=== PATIENT | female | born 1990 | race Two or more races ===

== ENCOUNTER 2024-10-18 17:10 | Emergency (ER) | payer MEDICAID, SELFPAY ==
[2024-10-18 17:10] VITALS: BMI 25.7
[2024-10-18 17:42] VITALS: BP 129/85; PULSE 101; RESP 18; TEMP 37; O2SAT 98; BMI 31.8
--- NOTE | 2024-10-18 18:26 | XR_ITS ---
Examination: OB Transvaginal ultrasound of the pelvis, complete Technique: Transvaginal sonographic images pelvis performed using alexandre scale imaging Exam date and time: October 10, 2024 2030 hrs. Indications: Onset vaginal bleeding today Findings: Uterus 10.6 x 5.4 x 6.1 cm Intrauterine gestational sac 0.9 cm corresponds to 5 weeks 5 day gestational age No pole, no cardiac activity Right ovary 2.6 x 1.7 x 2.1 cm arterial flow Left ovary 2.2 x .8 x 1.8 cm arterial flow. Impression: Empty intrauterine gestational sac corresponding to 5 weeks 5 day gestational age Recommend short-term follow-up transvaginal pelvic sonography to document viability
--- NOTE | 2024-10-18 18:27 | PD.EDRME ---
Rapid Medical Screening Exam [facility] Arrival date/time: 10/18/24 17:10 34F at approximately 6 weeks and with no significant PMH presents to ED with 1 day of vaginal bleeding. Chief Complaint: Urogenital-Female Vital signs: Vital Signs Temperature 98.6 F 10/18/24 17:42 Pulse Rate 101 H 10/18/24 17:42 Respiratory Rate 18 10/18/24 17:42 Blood Pressure 129/85 H 10/18/24 17:42 Pulse Oximetry (%) 98 10/18/24 17:42 Oxygen Delivery Method Room Air 10/18/24 17:42
[2024-10-18 18:51] LABS: Basophils % (Auto) 0 % (0-2.5); Eosinophils # (Auto) 0.1 Thou/mm3 (0.0-0.5); Eosinophils % (Auto) 1 % (0-10); Hematocrit 39.5 % (36.0-46.0); Hemoglobin 13.3 g/dL (12.0-16.0); Immature Granulocytes % (Auto) 0 % (0-0); Immature Granulocytes Auto 0.04 Thou/mm3 (0.00-0.00); Lymphocytes # (Auto) 1.9 Thou/mm3 (1.0-4.8); Lymphocytes % (Auto) 15 % (10-50); Mean Corpuscular HGB Conc 33.7 g/dl (31.0-37.0); Mean Corpuscular Hemoglobin 28.8 pg (25.0-35.0); Mean Corpuscular Volume 86 fL (80-100); Monocytes # (Auto) 1.1 Thou/mm3 (0.0-0.8); Monocytes % (Auto) 8 % (0-12); Neutrophils # (Auto) 9.8 Thou/mm3 (1.8-7.7); Neutrophils % (Auto) 76 % (37-80); Nucleated Red Blood Cell % 0 /100 WBC (0); Platelet Count 287 Thou/mm3 (140-440); RDW Standard Deviation 41.4 fL (36.4-46.3); Red Blood Count 4.62 Miln/mm3 (4.00-5.20); White Blood Count 12.9 Thou/mm3 (3.6-11.0)
[2024-10-18 19:25] LABS: Alanine Aminotransferase 17 U/L (10-49); Albumin, Serum 4.7 gm/dL (3.5-5.0); Albumin/Globulin Ratio 1.5 (1.2-2.2); Alkaline Phosphatase 85 U/L (46-116); Anion Gap 8 (7-16); Aspartate Amino Transferase 17 U/L (0-34); BUN/Creatinine Ratio 22 Ratio (12-20); Bilirubin,Total 0.3 mg/dL (0.3-1.2); Blood Urea Nitrogen 13 mg/dL (9-23); Calcium 9.9 mg/dL (8.3-10.6); Calcium (Corrected) 9.9 mg/dL (8.5-10.1); Carbon Dioxide 26.1 mMol/L (20.0-31.0); Chloride 102 mMol/L (98-107); Creatinine (Component) 0.6 mg/dL (0.6-1.3); Estimated Creatinine Clearance 132.2 mL/min (>60); Globulin 3.1 gm/dL (2.3-3.5); Glucose 103 mg/dL (74-106); Osmolality,Calculated 272 (275-295); Potassium 3.9 mMol/L (3.4-5.1); Sodium 136 mMol/L (136-145); Total Protein 7.8 gm/dL (5.7-8.2); eGFR > 60 See Note
[2024-10-18 19:32] LABS: Collection Type, Urine Clean Catch
[2024-10-18 19:33] LABS: Beta HCG,Quantitative 5729 mIU/mL (<5.0)
[2024-10-18 19:41] LABS: Bilirubin,Urine Negative (Negative); Blood,Urine 2+ (Negative); Clarity,Urine Clear (Clear/Hazy); Color,Urine Lt-Yellow (Lt Yel-Yel); Glucose, Urine Negative (Negative); Ketones,Urine Negative (Negative); Leukocyte Esterase,Urine Negative (Negative); Nitrite,Urine Negative (Negative); Protein,Urine Negative (Neg - Trace); RBC,Urine 1 /hpf (0-3); Specific Gravity,Urine 1.016 (1.001-1.035); Squamous Epithelial Cell,Urine 1 /hpf (0-5); Urobilinogen,Urine Negative mg/dL (0.0-1.0); WBC,Urine < 1 /hpf (0-5)
[2024-10-19 00:06] VITALS: BP 118/77; PULSE 95; RESP 16; TEMP 37; O2SAT 98
--- NOTE | 2024-10-19 00:09 | PD.EDFMALE ---
ED Female Urogenital RME/HPI General Chief complaint: Urogenital-Female Stated complaint: VAGINAL BLEEDING TODAY, + Time Seen by Provider: 10/19/24 00:13 Arrival date/time: 10/18/24 17:10 RME / HPI RME / HPI Narrative: 10/18/24 17:10 34F at approximately 6 weeks and with no significant PMH presents to ED with 1 day of vaginal bleeding. ----- Dr. Escobar?s Main ED Evaluation: 34yo female presents to the ED for a chief complaint of vaginal bleeding x 1 day. Patient states she is ~6 weeks gestation, stating she went to [facility] today, but was unable to get an appointment, so she came in for evaluation. She denies any abdominal cramping or any other associated symptoms. NKA. Related Data Home Medications ?Medication ?Instructions ?Recorded ?Confirmed vit no.95-ferrous PO DAILY 12/13/17 fumarate 28 mg-folic acid 800 mcg tablet () Allergies Allergy/AdvReac Type Severity Reaction Status Date / Time No Known Allergies Allergy Unverified 10/18/24 17:14 Review of Systems Review of Systems Systems Reviewed: All systems reviewed, normal except as documented Past Medical History Past Medical History NEUROLOGIC: Negative Neurological Disorders CARDIAC: Negative Cardiac Disorders GASTROINTESTINAL: Negative Gastrointestinal Disorders, Hepatitis or Colorectal Cancer GENITOURINARY: Negative Genitourinary Disorders or Prostate Cancer REPRODUCTIVE: Negative Breast Cancer, Pelvic Inflammatory Disease or Testicular Cancer MUSCULOSKELETAL: Negative Musculoskeletal Disorders or Bone Cancer ENDOCRINE: Negative Endocrine Disorders HEMATOLOGIC: Negative Blood Disorders OTHER HISTORY: Positive Hospitalization ( x4); Negative Autoimmune Disease, Down Syndrome, Developmental Delay, Shingles, Falls, Blood Transfusions, Blood Transfusion Reaction, Anesthesia Reactions, Organ Transplant, Chemotherapy, Radiation Therapy, Hyperbaric Therapy, MRSA, Vancomycin-Resistant Enterococci, Human Immunodeficiency Virus (HIV), Chicken Pox, Measles, Mumps, Rubella (Welsh Measles), Pertussis, Clostridium Difficile, Breast Cancer, Cervical Cancer, Colorectal Cancer, Lung Cancer, Ovarian Cancer, Prostate Cancer or Testicular Cancer Family History FAMILY HISTORY: Negative Family Psychiatric Problems, Family Respiratory Disorders, Family Cardiac Disorders, Family Gastrointestinal Problems, Family Cancer, Family Surgery or Family Anesthesia Reaction Surgical History SURGICAL: Negative Endocrine Surgery, Ear Surgery, Abdominal Surgery, Nephrectomy, Joint Replacement, Neurologic Surgery, Brain Shunt, Mastectomy, Lumpectomy, Hysterectomy, Tubal Ligation, Section or Organ Transplant Social History SMOKING STATUS: Never smoker ED Exam Narrative Physical exam: GENERAL APPEARANCE: alert and oriented x 4, well-developed, well-nourished, no acute distress VITALS: All vitals were reviewed and the pulse ox is 98% on room air, which is normal according to my interpretation. HEENT: Normocephalic, atraumatic; pupils equal, round, reactive to light; EOMI; mucous membranes pink, moist; oropharynx clear NECK: Supple LUNGS: CTABL; no wheezes, no rales, no rhonchi HEART: Regular rate, regular rhythm; normal S1, S2; no murmurs ABDOMEN: non distended; normal BS; soft, no tenderness, no guarding, no rebound; no masses, no organomegaly, no hernia BACK: no CVA tenderness EXTREMITIES: atraumatic; no edema NEUROLOGIC: awake; alert and oriented x4; cranial nerves II-XII grossly intact; no focal sensory or motor deficits PSYCHIATRIC: appropriate mood and affect SKIN: warm, dry, normal color; no rashes Course Quality Measures none Orders Category Date Time Status US OB transvaginal Stat Exams 10/18/24 18:26 Completed ABO/RH Type Stat Lab 10/18/24 18:43 Completed Beta HCG,Quantitative Stat Lab 10/18/24 18:43 Completed CBC Stat Lab 10/18/24 18:43 Completed CMP [Comprehensive Metabolic Panel] Stat Lab 10/18/24 18:43 Completed UA [Urinalysis] Stat Lab 10/18/24 18:45 Completed Urine Culture Stat Lab 10/18/24 18:45 Completed Vital Signs Vital signs: Vital Signs Temperature 98.6 F 10/18/24 17:42 Pulse Rate 101 H 10/18/24 17:42 Respiratory Rate 18 10/18/24 17:42 Blood Pressure 129/85 H 10/18/24 17:42 Pulse Oximetry (%) 98 10/18/24 17:42 Oxygen Delivery Method Room Air 10/18/24 17:42 Urogenital - Female MDM Narrative MDM Narrative:: Scribe Attestation: 10/19/24 - Nela Jackson am scribing for and in the presence of Dr. Escobar. Patient data External records reviewed:: [facility] previous records (Per chart review, patient has no relevant previous ED visits.) Clinical information provided by:: patient Social determinants that could affect healthcare access:: none Patient has the following chronic illnesses:: none How is presenting disease/condition affected by chronic disease/condition?: no chronic disease Evaluation data The following diagnostics were reviewed and interpreted by me:: lab results and radiology exam(s) Lab and/or radiology exams considered but not ordered:: none Interpretation Summary: WBC count is elevated at 12.9, CMP is normal, Beta HCG is 5729, UA is unremarkable, according to my interpretation. ----- [facility] Report Signed Patient: YING MARTELL. Record#: [id number] Birthdate: 1990 Age/Sex: 34 / F Location: [facility] ([place] Attending Dr: Ordering Physician: Donaldo Davila PA-C Date of Service: 10/18/24 Procedure(s): US OB transvaginal Accession Number(s): [id number] cc: Luis Ruvalcaba MD; Rolando Healy MD; Donaldo Davila PA-C~ Examination: OB Transvaginal ultrasound of the pelvis, complete Technique: Transvaginal sonographic images pelvis performed using alexandre scale imaging Exam date and time: October 10, 2024 2030 hrs. Indications: Onset vaginal bleeding today Findings: Uterus 10.6 x 5.4 x 6.1 cm Intrauterine gestational sac 0.9 cm corresponds to 5 weeks 5 day gestational age No pole, no cardiac activity Right ovary 2.6 x 1.7 x 2.1 cm arterial flow Left ovary 2.2 x .8 x 1.8 cm arterial flow. Impression: Empty intrauterine gestational sac corresponding to 5 weeks 5 day gestational age Recommend short-term follow-up transvaginal pelvic sonography to document viability Dictated By: Rolando Healy MD Signed By: <Electronically signed by Rolando Healy MD in OV> 10/18/242100 Medications / Prescriptions Medications or Prescriptions considered but not ordered:: none Medication administrations:: none Consultations Consultation(s) initiated? (list below): No Diagnosis Urogenital Female Differential Diagnosis: other (threatened miscarriage, vaginal bleeding in , inevitable AB) Most likely diagnosis given after review of the tests above:: see below Admission Indicated Admission indicated?: not indicated Admission Request Was there a request for admission?: No Disposition Plan Disposition Plan: Discharge Discharge Attestation Discharge Attestation: The patient and all family members were given an opportunity to ask questions and understood the discharge instructions. Discharge instructions specifically effects, indications for sooner follow up or return to the emergency department, and the expected course of current diagnosis. Patient condition: Stable Discharge Plan Plan Patient Disposition: HOME (Self Care) Disposition Comment: Stable for discharge Patient condition on transfer: Stable Prescriptions/Referrals Prescriptions/Med Rec: No Action PNV cmb#95-ferrous fumarate-FA [] 28 mg iron- 800 mcg Tablet PO DAILY Referrals: Luis Ruvalcaba MD [Primary Care Provider] - In 1 week Problem List Clinical Impression: Threatened Patient/Caregiver Discharge Instructions Discharge Activity: activity as tolerated Education Materials: Understanding Miscarriage ..., ED Possible Miscarriage ... Additional Instructions: Please return to the emergency department for any worsening or any further medical problems Otherwise you should follow-up with your primary care doctor within the next several days. You will need a repeat ultrasound in several days. Print Language: Chinese Stand Alone Forms: Mi Award Info., Patient Portal Info Letter
== END 2024-10-19 00:29 | disposition home or self-care (01) ==
PROVIDERS: Physician Assistant; Emergency Provider Emergency Medicine; PCP Family Medicine
DX: O20.0 Threatened abortion (principal); Z3A.01 Less than 8 weeks gestation of pregnancy
CPT/HCPCS: 36415; 76817; 80053; 81001; 84702; 85025; 86900; 86901; 87086; 99284

== ENCOUNTER 2024-10-23 23:49 | Emergency (ER) | payer MEDICAID, SELFPAY ==
[2024-10-23 23:50] VITALS: BMI 27.4
[2024-10-24 00:07] VITALS: BP 122/81; PULSE 91; RESP 16; TEMP 37.1; O2SAT 97
--- NOTE | 2024-10-24 00:14 | PD.EDRME ---
Rapid Medical Screening Exam RME Arrival date/time: 10/23/24 23:49 34 year old female present to ED for c/o of vag bleeding 8 week I have greeted and performed a focused initial assessment of this patient. A comprehensive ED assessment and evaluation of the patient, analysis of all test results, and completion of the medical decision making process will be conducted by additional ED providers. Chief Complaint: Vaginal Bleeding Time Seen by Provider: 10/23/24 23:57 Vital signs: Vital Signs Temperature 98.8 F 10/24/24 00:07 Pulse Rate 91 10/24/24 00:07 Respiratory Rate 16 10/24/24 00:07 Blood Pressure 122/81 10/24/24 00:07 Pulse Oximetry (%) 97 10/24/24 00:07 Oxygen Delivery Method Room Air 10/24/24 00:07
[2024-10-24 01:15] LABS: Collection Type, Urine Voided
[2024-10-24 01:24] LABS: Basophils % (Auto) 0 % (0-2.5); Eosinophils # (Auto) 0.1 Thou/mm3 (0.0-0.5); Eosinophils % (Auto) 1 % (0-10); Hematocrit 37.2 % (36.0-46.0); Hemoglobin 12.6 g/dL (12.0-16.0); Immature Granulocytes % (Auto) 0 % (0-0); Immature Granulocytes Auto 0.04 Thou/mm3 (0.00-0.00); Lymphocytes # (Auto) 2.3 Thou/mm3 (1.0-4.8); Lymphocytes % (Auto) 19 % (10-50); Mean Corpuscular HGB Conc 33.9 g/dl (31.0-37.0); Mean Corpuscular Hemoglobin 29.1 pg (25.0-35.0); Mean Corpuscular Volume 86 fL (80-100); Monocytes # (Auto) 0.9 Thou/mm3 (0.0-0.8); Monocytes % (Auto) 8 % (0-12); Neutrophils # (Auto) 8.4 Thou/mm3 (1.8-7.7); Neutrophils % (Auto) 72 % (37-80); Nucleated Red Blood Cell % 0 /100 WBC (0); Platelet Count 256 Thou/mm3 (140-440); RDW Standard Deviation 41.9 fL (36.4-46.3); Red Blood Count 4.33 Miln/mm3 (4.00-5.20); White Blood Count 11.8 Thou/mm3 (3.6-11.0)
[2024-10-24 01:33] LABS: Bacteria,Urine Rare; Bilirubin,Urine Negative (Negative); Blood,Urine 3+ (Negative); Clarity,Urine Clear (Clear/Hazy); Color,Urine Yellow (Lt Yel-Yel); Glucose, Urine Negative (Negative); Ketones,Urine Negative (Negative); Leukocyte Esterase,Urine Negative (Negative); Nitrite,Urine Negative (Negative); PH,Urine 6.5 (5.0-7.0); Protein,Urine Trace (Neg - Trace); RBC,Urine 174 /hpf (0-3); Specific Gravity,Urine 1.023 (1.001-1.035); Squamous Epithelial Cell,Urine 2 /hpf (0-5); WBC,Urine 5 /hpf (0-5)
[2024-10-24 01:49] LABS: Beta HCG,Quantitative 4117 mIU/mL (<5.0)
--- NOTE | 2024-10-24 02:05 | XR_ITS ---
Examination: OB Transvaginal ultrasound of the pelvis, complete Technique: Transvaginal sonographic images pelvis performed using alexandre scale imaging Exam date and time: October 24, 2024 0210 hrs. Indications: Vaginal bleeding beginning October 18, 2024 Findings: Uterus 10.6 x 5.6 x 6.1 cm No intrauterine gestation Endometrial stripe thickened 1.1 cm mildly heterogeneous Right ovary 3.0 x 2.1 x 2.2 cm arterial flow Left ovary 2.4 x 1.0 x 1.8 cm arterial flow Impression: No intrauterine gestation Suspicious for mild retained products of conception Recommend short-term follow-up transvaginal pelvic sonography.
--- NOTE | 2024-10-24 03:56 | PRELIM_ITS ---
Pelvic ultrasound (transvaginal). October 24, 2024 0210 hours Clinical history: Vaginal bleeding No p rior study is available for comparison. Findings:The uterus is anteverted, measuring 10.6 x 5.6 x 6.1 cm. The endometrium is heterogeneous and thickened, measuring 1.1 cm without increased vascularity o n Doppler evaluation. No intrauterine gestational sac is seen at this time. The right ovary measures 3 x 2.1 x 2.2 cm.The left ovary measures 2.4 x 1 x 1.8 cm. Both ovaries demonstrate color flow and sp ectral waveforms on Doppler evaluation. No adnexal mass is demonstrated.There is no free fluid.Impres kashif:No evidence of intrauterine gestation at this time.Heterogeneous and thickened endometrium as de scribed. No intrauterine gestation. Possibility of blood products/retained products of conception to be considered. Recommend serial correlation with Beta hCG and follow up. Report Electronically Kelly d By: Edinson Gill 10/24/2024 3:55:56 AM [EST]
[2024-10-24 05:15] VITALS: BP 119/68; PULSE 78; RESP 18; TEMP 36.9; O2SAT 100
[2024-10-24 08:49] VITALS: BP 127/86; PULSE 88; RESP 18; TEMP 36.7; O2SAT 98
--- NOTE | 2024-10-24 08:51 | EDNOTE_ITS ---
<Statement entered by Rut Ramon MD - 10/31/24 14:48> As co-signing physician, I was present and available for consult prn. I concur with the plan and care as documented by the midlevel provider. ED OB Contraction Preg RMI/HPI General Chief complaint: Vaginal Bleeding Stated complaint: anxiety, vaginal bleeding Time Seen by Provider: 10/23/24 23:57 Source: patient Arrival date/time: 10/23/24 23:49 34-year-old female with no known medical history presents to the emergency room with a chief complaint of vaginal bleeding x 2 days. Patient is currently 8 weeks . Mode of arrival: ambulatory Limitations: no limitations RME / HPI RME / HPI Narrative: 10/23/24 23:49 34 year old female present to ED for c/o of vag bleeding 8 week I have greeted and performed a focused initial assessment of this patient. A comprehensive ED assessment and evaluation of the patient, analysis of all test results, and completion of the medical decision making process will be conducted by additional ED providers. Related Data Home Medications ?Medication ?Instructions ?Recorded ?Confirmed vit no.95-ferrous PO DAILY 12/13/17 fumarate 28 mg-folic acid 800 mcg tablet () Allergies Allergy/AdvReac Type Severity Reaction Status Date / Time No Known Allergies Allergy Unverified 10/18/24 17:14 Review of Systems Review of Systems Systems Reviewed: All systems reviewed, normal except as documented Constitutional Constitutional: Reports system reviewed and no additional complaints, except as documented, Denies fatigue, Denies fever(s), Denies headache(s) and Denies weakness Eyes Eyes: Reports system reviewed and no additional complaints, except as documented, Denies blurry vision and Denies change in vision ENT Ears, Nose, Mouth, and Throat: Reports system reviewed and no additional complaints, except as documented, Denies otalgia, Denies headache(s), Denies nasal congestion, Denies throat swelling and Denies vertigo Cardiovascular Cardiovascular: Reports system reviewed and no additional complaints, except as documented, Denies chest pain, Denies dyspnea and Denies dyspnea on exertion Respiratory Respiratory: Reports system reviewed and no additional complaints, except as documented, Denies chest congestion, Denies cough, Denies dyspnea, Denies dyspnea on exertion and Denies wheezing Gastrointestinal Gastrointestinal: Reports system reviewed and no additional complaints, except as documented, Denies abdominal pain, Denies cramping, Denies nausea and Denies vomiting Genitourinary Genitourinary: Reports system reviewed and no additional complaints, except as documented and Reports abnormal vaginal bleeding Musculoskeletal Musculoskeletal: Reports system reviewed and no additional complaints, except as documented and Denies back pain Integumentary/Breasts Skin/Breast: Reports system reviewed and no additional complaints, except as documented and Denies wounds Neurologic Neurologic: Reports system reviewed and no additional complaints, except as documented, Denies confusion, Denies headache(s), Denies lack of coordination, Denies vertigo and Denies weakness Psychiatric Psychiatric: Reports system reviewed and no additional complaints, except as documented, Denies anxiety, Denies confusion, Denies depression, Denies paranoia, Denies suicidal ideation and Denies tactile hallucinations Endocrine Endocrine: Reports system reviewed and no additional complaints, except as documented and Denies fatigue Hematologic/Lymphatic Hematologic/Lymphatic: Reports system reviewed and no additional complaints, except as documented and Denies lymphadenopathy Allergic/Immunologic Allergic/Immunologic: Reports system reviewed and no additional complaints, except as documented, Denies throat swelling, Denies urticaria and Denies wheezing ED Exam General Limitations: Present no limitations General appearance: Present alert and in no apparent distress Head Head exam: Present atraumatic Eye Eye exam: Present normal appearance, PERRL and EOMI ENT ENT exam: Present normal exam, normal oropharynx and mucous membranes moist Neck Neck exam: Present normal inspection, full ROM and trachea midline Chest Chest inspection: Present normal inspection and symmetric chest wall rise Respiratory Respiratory exam: Present normal lung sounds bilaterally Cardiovascular Cardiovascular exam: Present regular rate, normal rhythm and normal heart sounds Abdominal Exam Abdominal exam: Present soft and normal bowel sounds; Absent distention, tenderness, guarding, rebound or rigidity Extremities Exam Extremities exam: Present normal inspection and full ROM Back Exam Back exam: Present normal inspection and full ROM Neurological Exam Neurological exam: Present alert, oriented X3 and CN II-XII intact Psychiatric Psychiatric exam: Present normal affect and normal mood Skin Skin exam: Present warm, dry, intact and normal color Course Quality Measures none Orders Category Date Time Status US OB transvaginal Stat Exams 10/24/24 02:05 Completed Beta HCG,Quantitative Stat Lab 10/24/24 00:43 Completed CBC Stat Lab 10/24/24 00:43 Completed UA [Urinalysis] Stat Lab 10/24/24 00:47 Completed Vital Signs Vital signs: Vital Signs Temperature 98.8 F 10/24/24 00:07 Pulse Rate 91 10/24/24 00:07 Respiratory Rate 16 10/24/24 00:07 Blood Pressure 122/81 10/24/24 00:07 Pulse Oximetry (%) 97 10/24/24 00:07 Oxygen Delivery Method Room Air 10/24/24 00:07 O2 saturation 97% within normal limits Vaginal Bleeding MDM Narrative MDM Narrative: 34-year-old female with no known medical history presents to the emergency room with a chief complaint of vaginal bleeding x 2 days. Patient is currently 8 weeks . Clinically the patient appears nontoxic and in no apparent distress. Physical examination shows no abdominal tenderness or pain or any pain or tenderness to her groin. The patient is not bleeding heavily. Patient states she is having mild bleeding and is less than a normal period. Hemoglobin levels are within normal limits. hCG levels have decreased from her previous visit and are now down to 4117. an ultrasound was completed and does not show an intrauterine . Patient was educated that she is having a spontaneous miscarriage. Our radiologist recommended a short-term ultrasound follow-up. Patient was educated to follow-up with her [employer] for repeat ultrasound and lab work. Patient was educated that if she is unable to get to her [employer] she can return to the emergency room in the next 3 days for repeat ultrasound and blood work. Patient was educated to follow-up with her [employer] and return to the emergency room for any evidence of worsening signs or symptoms Patient data External records reviewed:: [facility] previous records Clinical information provided by:: patient Social determinants that could affect healthcare access:: none Patient has the following chronic illnesses:: No chronic illness How is presenting disease/condition affected by chronic disease/condition?: no chronic disease Evaluation data The following diagnostics were reviewed and interpreted by me:: lab results and radiology exam(s) Lab and/or radiology exams considered but not ordered:: Labs and radiology exams considered and ordered Interpretation Summary: OB ultrasound-Findings: Uterus 10.6 x 5.6 x 6.1 cm No intrauterine gestation Endometrial stripe thickened 1.1 cm mildly heterogeneous Right ovary 3.0 x 2.1 x 2.2 cm arterial flow Left ovary 2.4 x 1.0 x 1.8 cm arterial flow Impression: No intrauterine gestation Suspicious for mild retained products of conception Recommend short-term follow-up transvaginal pelvic sonography. Medications / Prescriptions Medications or Prescriptions considered but not ordered:: N/A Medication administrations:: N/A Consultations Consultation(s) initiated? (list below): No Diagnosis Vaginal Bleeding Differential Diagnosis: missed , threatened , dysfunctional uterine bleeding, incomplete and ectopic without intrauterine Most likely diagnosis given after review of the tests above:: Incomplete Admission Indicated Admission indicated?: not indicated Admission Request Was there a request for admission?: No Disposition Plan Disposition Plan: Discharge Discharge Attestation Discharge Attestation: The patient and all family members were given an opportunity to ask questions and understood the discharge instructions. Discharge instructions specifically effects, indications for sooner follow up or return to the emergency department, and the expected course of current diagnosis. Patient condition: Stable Discharge Plan Plan Patient Disposition: HOME (Self Care) Disposition Comment: Stable Prescriptions/Referrals Prescriptions/Med Rec: No Action PNV cmb#95-ferrous fumarate-FA [] 28 mg iron- 800 mcg Tablet PO DAILY Referrals: La Duenas CNM [Primary Care Provider] - In 1 week Problem List Clinical Impression: Spontaneous , Vaginal bleeding Patient/Caregiver Discharge Instructions Education Materials: Understanding Miscarriage: Emotions, Understanding Miscarriage: Recovery, Understanding Miscarriage ..., ED MISCARRIAGE Completed Additional Instructions: Carmelo un seguimiento con trent obstetra/ginec?logo en las pr?ximas 24 a 48 horas. La ecograf?a no detect? un embarazo intrauterino. Actualmente est?s sufriendo un aborto espont?michelle. La ecograf?a detect? algunos productos retenidos, ester michelle actualmente est?s abortando, necesitar?s repetir la ecograf?a en las pr?ximas 48 a 76 horas. Si hay evidencia de signos o s?ntomas que empeoran, regrese a la mayuri de emergencias de inmediato. Print Language: Kinyarwanda Stand Alone Forms: Mi Award Info., Patient Portal Info Letter PA/LABOR DELIVERY RN Supervising Physician PA/LABOR DELIVERY RN Supervising Physician: Dr. RAMON
== END 2024-10-24 08:55 | disposition home or self-care (01) ==
PROVIDERS: Physician Assistant; Emergency Provider Emergency Medicine; PCP Advanced Practice Midwife
DX: O03.4 Incomplete spontaneous abortion without complication (principal)
CPT/HCPCS: 36415; 76817; 81001; 84702; 85025; 99284

== ENCOUNTER 2024-10-28 10:13 | Emergency (ER) | payer MEDICAID, SELFPAY ==
--- NOTE | 2024-10-28 10:23 | XR_ITS ---
Examination: OB Transvaginal ultrasound of the pelvis, complete Technique: Transvaginal sonographic images pelvis performed using alexandre scale imaging Exam date and time: October 28, 2024 at 10:49 AM INDICATIONS: Vaginal bleeding beginning October 18, 2024, secondary diagnosis retained products of conception on pelvic sonogram October 24, 2024 FINDINGS: Uterus 10.5 x 5.2 x 7.4 cm No uterine mass or intrauterine gestation No retained products of conception Endometrial stripe 6 mm Right ovary 2.7 x 2.2 cm arterial flow Left ovary obscured by bowel gas IMPRESSION: Negative for retained products of conception.
--- NOTE | 2024-10-28 10:24 | EDNOTE_ITS ---
ED Female Urogenital RME/HPI General Chief complaint: Urogenital-Female Stated complaint: sent by pmd for retained poc, vag. bleeding Time Seen by Provider: 10/28/24 10:24 Source: patient Arrival date/time: 10/28/24 10:13 34-year-old female with no known medical history presents to the emergency room with a chief complaint of vaginal bleeding. Patient was seen here 4 days ago for spontaneous and was told to follow-up with her PCP for repeat ultrasound and blood work. Patient was unable to see her PCP and she is returning to the emergency room for lab work. Patient states she is still having vaginal bleeding. Mode of arrival: ambulatory Limitations: no limitations Related Data Home Medications ?Medication ?Instructions ?Recorded ?Confirmed vit no.95-ferrous PO DAILY 12/13/17 fumarate 28 mg-folic acid 800 mcg tablet () Allergies Allergy/AdvReac Type Severity Reaction Status Date / Time No Known Allergies Allergy Unverified 10/18/24 17:14 ED Exam General Limitations: Present no limitations Course Quality Measures none Orders Category Date Time Status US OB transvaginal Stat Exams 10/28/24 10:23 Completed ABO/RH Type Stat Lab 10/28/24 10:39 Completed Beta HCG,Quantitative Stat Lab 10/28/24 10:39 Completed CBC Stat Lab 10/28/24 10:39 Completed CMP [Comprehensive Metabolic Panel] Stat Lab 10/28/24 10:39 Completed UA [Urinalysis] Stat Lab 10/28/24 10:55 Completed Vital Signs Vital signs: Vital Signs Temperature 98.5 F 10/28/24 10:27 Pulse Rate 85 10/28/24 10:27 Respiratory Rate 16 10/28/24 10:27 Blood Pressure 114/77 10/28/24 10:27 Pulse Oximetry (%) 98 10/28/24 10:27 Oxygen Delivery Method Room Air 10/28/24 10:27 Urogenital - Female MDM Narrative MDM Narrative:: 34-year-old female with no known medical history presents to the emergency room with a chief complaint of vaginal bleeding. Patient was seen here 4 days ago for spontaneous and was told to follow-up with her PCP for repeat ultrasound and blood work. Patient was unable to see her PCP and she is returning to the emergency room for lab work. Patient states she is still having vaginal bleeding. Clinically the patient appears nontoxic and in no apparent distress. Physical examination shows a soft nontender abdomen. Ultrasound was completed and was negative for any retained products of conception. hCG levels were decreased since the last visit. The patient states she changes 3 pads a day and is bleeding less than a period. Patient was discharged and educated to follow-up with her [employer] and return to the emergency room for any evidence of worsening signs or symptoms Patient data External records reviewed:: [facility] previous records Clinical information provided by:: patient Social determinants that could affect healthcare access:: none Patient has the following chronic illnesses:: No chronic illness How is presenting disease/condition affected by chronic disease/condition?: no chronic disease Evaluation data The following diagnostics were reviewed and interpreted by me:: lab results and radiology exam(s) Lab and/or radiology exams considered but not ordered:: Labs and radiology exams considered and ordered Interpretation Summary: Transvaginal ultrasound-FINDINGS: Uterus 10.5 x 5.2 x 7.4 cm No uterine mass or intrauterine gestation No retained products of conception Endometrial stripe 6 mm Right ovary 2.7 x 2.2 cm arterial flow Left ovary obscured by bowel gas IMPRESSION: Negative for retained products of conception. Medications / Prescriptions Medications or Prescriptions considered but not ordered:: No medication given Medication administrations:: No medication given Consultations Consultation(s) initiated? (list below): No Diagnosis Urogenital Female Differential Diagnosis: urinary tract infection and other (Incomplete spontaneous /complete /vaginal bleeding) Most likely diagnosis given after review of the tests above:: Vaginal bleeding Admission Indicated Admission indicated?: not indicated Admission Request Was there a request for admission?: No Disposition Plan Disposition Plan: Discharge Discharge Attestation Discharge Attestation: The patient and all family members were given an opportunity to ask questions and understood the discharge instructions. Discharge instructions specifically effects, indications for sooner follow up or return to the emergency department, and the expected course of current diagnosis. Patient condition: Stable Discharge Plan Plan Patient Disposition: HOME (Self Care) Disposition Comment: Stable Prescriptions/Referrals Prescriptions/Med Rec: No Action PNV cmb#95-ferrous fumarate-FA [] 28 mg iron- 800 mcg Tablet PO DAILY Referrals: La Duenas CNM [Primary Care Provider] - In 1 week Problem List Clinical Impression: Vaginal bleeding Patient/Caregiver Discharge Instructions Education Materials: ED Dysfunctional Uterine Bleeding Additional Instructions: Carmelo un seguimiento con trent obstetra/ginec?logo en las pr?ximas 24 a 48 horas. Se realiz? michelle ecograf?a y no hay productos retenidos en el ?tero. Tus niveles en edy est?n disminuyendo michelle deber?a ser. Carmelo un seguimiento con trent obstetra/ginec?logo y regrese a la mayuri de emergencias si hay evidencia de que los signos o s?ntomas empeoran. Print Language: Nigerian Stand Alone Forms: Mi Award Info., Patient Portal Info Letter PA/BUSINESS CONTROL MANAGER Supervising Physician PA/BUSINESS CONTROL MANAGER Supervising Physician: Dr. Mackenzie
[2024-10-28 10:27] VITALS: BP 114/77; PULSE 85; RESP 16; TEMP 36.9; O2SAT 98; BMI 31.4
[2024-10-28 10:56] LABS: Basophils % (Auto) 1 % (0-2.5); Eosinophils # (Auto) 0.1 Thou/mm3 (0.0-0.5); Eosinophils % (Auto) 2 % (0-10); Hematocrit 38.3 % (36.0-46.0); Hemoglobin 12.6 g/dL (12.0-16.0); Immature Granulocytes % (Auto) 0 % (0-0); Immature Granulocytes Auto 0.01 Thou/mm3 (0.00-0.00); Lymphocytes % (Auto) 30 % (10-50); Mean Corpuscular HGB Conc 32.9 g/dl (31.0-37.0); Mean Corpuscular Hemoglobin 28.6 pg (25.0-35.0); Mean Corpuscular Volume 87 fL (80-100); Monocytes # (Auto) 0.5 Thou/mm3 (0.0-0.8); Monocytes % (Auto) 7 % (0-12); Neutrophils % (Auto) 60 % (37-80); Nucleated Red Blood Cell % 0 /100 WBC (0); Platelet Count 310 Thou/mm3 (140-440); RDW Standard Deviation 41.5 fL (36.4-46.3); Red Blood Count 4.41 Miln/mm3 (4.00-5.20); White Blood Count 6.6 Thou/mm3 (3.6-11.0)
[2024-10-28 11:06] LABS: Collection Type, Urine Clean Catch
[2024-10-28 11:16] LABS: Bacteria,Urine Rare; Bilirubin,Urine Negative (Negative); Blood,Urine 1+ (Negative); Color,Urine Yellow (Lt Yel-Yel); Glucose, Urine Negative (Negative); Ketones,Urine Negative (Negative); Leukocyte Esterase,Urine Negative (Negative); Nitrite,Urine Negative (Negative); PH,Urine 6.5 (5.0-7.0); Protein,Urine Trace (Neg - Trace); RBC,Urine 4 /hpf (0-3); Specific Gravity,Urine 1.029 (1.001-1.035); Squamous Epithelial Cell,Urine 1 /hpf (0-5); Urobilinogen,Urine Negative mg/dL (0.0-1.0); WBC,Urine 1 /hpf (0-5)
[2024-10-28 11:21] LABS: Clarity,Urine Hazy (Clear/Hazy)
[2024-10-28 11:23] LABS: Alanine Aminotransferase 9 U/L (10-49); Albumin, Serum 4.3 gm/dL (3.5-5.0); Albumin/Globulin Ratio 1.3 (1.2-2.2); Alkaline Phosphatase 86 U/L (46-116); Anion Gap 5 (7-16); Aspartate Amino Transferase 17 U/L (0-34); BUN/Creatinine Ratio 25 Ratio (12-20); Beta HCG,Quantitative 259 mIU/mL (<5.0); Bilirubin,Total 0.3 mg/dL (0.3-1.2); Blood Urea Nitrogen 15 mg/dL (9-23); Calcium 9.4 mg/dL (8.3-10.6); Calcium (Corrected) 9.4 mg/dL (8.5-10.1); Carbon Dioxide 28.8 mMol/L (20.0-31.0); Chloride 105 mMol/L (98-107); Creatinine (Component) 0.6 mg/dL (0.6-1.3); Estimated Creatinine Clearance 131.4 mL/min (>60); Globulin 3.2 gm/dL (2.3-3.5); Glucose 82 mg/dL (74-106); Osmolality,Calculated 277 (275-295); Potassium 3.9 mMol/L (3.4-5.1); Sodium 139 mMol/L (136-145); Total Protein 7.5 gm/dL (5.7-8.2); eGFR > 60 See Note
== END 2024-10-28 12:21 | disposition home or self-care (01) ==
PROVIDERS: Nurse Practitioner Family; Emergency Provider Emergency Medicine; PCP Advanced Practice Midwife
DX: N93.8 Other specified abnormal uterine and vaginal bleeding (principal)
CPT/HCPCS: 36415; 76817; 80053; 81001; 84702; 85025; 86900; 86901; 99284

== ENCOUNTER 2025-02-02 12:57 | Outpatient (AMB) | payer MEDICAID, SELFPAY ==
--- NOTE | 2025-02-02 13:13 | OBCLNT_ITS ---
Vital Signs 02/02/25 13:34 Height 1.7 m Height Method Stated Weight 84.085 kg Weight Measurement Method Standing Scale BMI 29.0 BP 113/79 Blood Pressure Source Automatic Cuff Blood Pressure Location Left Upper Arm Position Sitting Respiration 16 Pulse 98 Pulse Source Monitor Temp 97.7 F Temp Source Oral Pulse Oximetry (%) 98 Oxygen Delivery Method Room Air Allergies/Home Meds Allergies & Medications Allergies No Known Allergies Allergy (Verified 02/02/25 13:35) Medication Reconciliation vit no.95-ferrous fumarate 28 mg-folic acid 800 mcg tablet () 1 tab PO DAILY 90 days #90 tabs 02/02/25 [Rx] Intake Visit Data Collection New Patient or Established: Established Patient (seen at [facility] within 3 years) Reason for Visit:: INITIAL CARE Seen by Clinical Staff ONLY (RN/MA): No Director Audience Marketing Required: No Do You Feel Safe at Home: Yes Authorities Contacted: N/A PCP or OBGYN visit in last 3 months: No Hx Now: Yes Are you currently on any form of Control: No Last menstrual period: 01/04/25 Pain Present Currently: No Pain Scale Used: Almendarez-Tenorio/Numerical Pain scale:: 0 Smoking Status Smoking Status: Never smoker Questionnaires Covid-19 Vaccine Questionnaire Has patient been vacinated for Covid-19 Have you been vacinated for Covid-19: Yes PHQ-9 PHQ-2 Over the last 2 weeks, how often have you been bothered by any of the following problems? 1. Little interest or pleasure in doing things: not at all 2. Feeling down, depressed, or hopeless: not at all Total score: 0 PHQ-9 3. Trouble falling or staying asleep, or sleeping too much: Not at all 4. Feeling tired or having little energy: Not at all 5. Poor appetite or overeating: Not at all 6. Feeling bad about yourself - or that you are a failure or have let yourself or your family down: Not at all 7. Trouble concentrating on things, such as reading the newspaper or watching television: Not at all 8. Moving or speaking so slowly that other people could have noticed? - Or the opposite - being so fidgety or restless that you have been moving around a lot more than usual: not at all 9. Thoughts that you would be better off or of hurting yourself in some way: Not at all Total score: 0 Source: Developed by Drs. Ridge Feng, Misti Stephen, Celestino Zapata and colleagues, with an educational jorge from [employer]. Depression screen completed yes Social History Living Situation History Marital Status: Single Lives With: Family Housing: House Tobacco History Smoking Status: Never smoker Second Hand Smoke Exposure: No Alcohol History Alcohol Intake: Never Domestic Abuse History Do You Feel Safe at Home: Yes Past Medical History Past Medical History Have you ever been diagnosed with any of the following: Neurological Problems Cerebrovascular Accident (CVA): No Transient Ischemic Attacks (TIA): No Dementia: No Alzheimer's Disease: No Parkinson's Disease: No Meningitis: No Seizures: No Multiple Sclerosis: No Guillain-[place] Syndrome: No Spina Bifida: No Hayes's Palsy: No Cardiology Problems Myocardial Infarction: No Cardiac Arrhythmia: No Atrial Fibrillation: No Angina: No Atherosclerotic Heart Disease: No Peripheral Vascular Disease: No Hypercholesterolemia: No Congestive Heart Failure: No Respiratory Problems Chronic Obstructive Pulmonary Disease (COPD): No Asthma: No Bronchitis: No Emphysema: No Hx Cough: No Cough: No Wheezing: No Chest Deformities: No Smoking: No Smoking Cessation Counseling: No Smoking Exposure: No Tobacco Use: No Stomache/Intestinal Problems Liver Cancer: No Hepatitis: No Cirrhosis: No Pancreatic Cancer: No Pancreatitis: No Celiac Disease: No Colorectal Cancer: No Genital/Urinary Problems Chronic Kidney Disease: No Renal Disease: No Reproductive Problems Breast Cancer: No Pelvic Inflammatory Disease: No Previous Pregnancies: Yes Musculoskeletal Problems Muscular Dystrophy: No Myasthenia Gravis: No Marfan's Syndrome: No Bone Cancer: No Fractures: No Degenerative Joint Disease: No Osteomyelitis: No Poliovirus: No Head,Eye,Nose,Throat Problems Cataracts: No Glaucoma: No Blind: No Retinal Detachment: No Macular Degeneration: No Chronic Ear Infections: No Endocrine Problems Diabetes Mellitus Type 1: No Diabetes Mellitus Type 2: No Hypothyroidism: No Thyroid Cancer: No Parathyroid Disease: No Pituitary Disease: No Blood Problems Anemia: No Leukemia: No Hemophilia: No Thalassemia: No Sickle Cell Disease: No Clotting Problems: No Psychologic Problems Schizophrenia: No Recreational Drug Use: No Bipolar Disorder: No Other Problems Hospitalization: Yes Down Syndrome: No Developmental Delay: No Shingles: No Falls: No Blood Transfusions: No Blood Transfusion Reaction: No Anesthesia Reactions: No Organ Transplant: No Chemotherapy: No Radiation Therapy: No Hyperbaric Therapy: No MRSA: No Vancomycin-Resistant Enterococci: No Human Immunodeficiency Virus (HIV): No Chicken Pox: No Measles: No Mumps: No Rubella (Mozambican Measles): No Pertussis: No Clostridium Difficile: No Cervical Cancer: No Lung Cancer: No Ovarian Cancer: No Surgical History Hysterectomy: No History of Present Illness HPI Narrative 35-year-old 7 para 5 SAB 1 for OBI. Last. Was January 04, 2025. Menses are monthly. Reports sure dates. EDC based on LMP October 12. So patient is 4 weeks and a day to day. Denies any SAB complaints. She denies any first trimester discomforts. Her and are happy about the . She had a positive home test her 5 pregnancies were uneventful. Denies social habits. Denies surgery. Denies chronic illness. OB Initial Visit OB Flowsheet OB Flowsheet Initial Weight: Not Recorded Date -?-?-?-?-?-?-?-?-?-?-?-?- EGA Weight Edema CTX Effacement BP Fundal ht Pres Dilation Effacement Station Visit Note Alb Glu FHR Mov 02/02/25 -?-?-?-?-?-?-?-?-?-?-?-?- 4w 1d 84.085 kg absent absent 113/79 35-year-old 7 para 5 SAB 1 for initial OB appointment. Patient's last. January 04, 2025. This makes her due date October 12, 2025. Denies SAB complaints at this time. No complaints of first trimester discomforts. Her and her are happy about the . She reports that her periods are every month. Denies social habits. Denies surgery. Denies chronic illness. Patient denies social habits. Patient reports that all her pregnancies were normal and the biggest baby weighed 7-1/2 pounds. Today I ordered OB panel. vitamins vitamin D and calcium will be ordered. Urine dip was negative pH was 7.0 and urowas 1.0. And test today was positive. Schedule ultrasound for viability. Menstrual History Menstrual reliability: definite Flow: normal Menstrual regularity: regular Monthly: Yes Age at menarche: 14 On control pills at conception: No Date of positive home test: 12/28/24 Associated symptoms (LMP): Reports fatigue OB History : 7 Para: 5 Hx Total # of Abortions (Spontaneous & Elective): 1 # of Living Children: 5 Delivery History 1st : Child's name: KYLIE date: 08/09/05 sex: male Gestational age at delivery (weeks): 40 Delivery type: vaginal Delivery complications: NONE History of depression before or after : No 2nd : Child's name: TANESHA date: 02/14/07 sex: female Gestational age at delivery (weeks): 40 Delivery type: vaginal Delivery complications: NONE History of depression before or after : No 3rd : Child's name: LIZ date: 08/18/09 sex: male Gestational age at delivery (weeks): 39 Delivery type: vaginal Delivery complications: NONE History of depression before or after : No 4th : Child's name: ALMA date: 03/27/12 sex: female Gestational age at delivery (weeks): 38 Delivery type: vaginal Delivery complications: NONE History of depression before or after : No 5th : Child's name: STACEY date: 12/14/17 sex: male Gestational age at delivery (weeks): 39 Delivery type: vaginal Delivery complications: NONE History of depression before or after : No Infection History & Risk Evaluation History of STDs: none Genetic Screening & History Genetic Screening/Teratology Counseling - Includes patient, baby's father, or anyone in either family with: 1. Patient's age 35 years or older as of estimated date of delivery: Yes 2. Thalassemia (Arabic, Citizen Of [place], Mediterranean, or Background); MCV less than 80: No 3. Neural Tube Defect (Meningomyelocele, Spina Bifida, or Anencephaly): No 4. Congenital Heart Defect: No 5. Down Syndrome: No 6. Osorio-Sachs (Ashkenazi Temple, Cajun, Spanish [place]): No 7. Silvano Disease (Ashkenazi Temple): No 8. Familial Dysautonomia (Ashkenazi [place]): No 9. Sickle Cell Disease or Trait (): No 10. Hemophilia or other blood disorders: No 11. Muscular Dystrophy: No 12. Cystic Fibrosis: No 13. Linda's Chorea: No 14. Mental Retardation/Autism: No 15. Other inherited genetic or chromosomal disorder: No 16. Maternal Metabolic Disorder (EG,TYPE 1 Diabetes, PKU): No 17. Patient or baby's father had a child with defects not listed above: No 18. Recurrent loss or a stillbirth: No 19. Medications (including supplements, vitamins, herbs or otc drugs)/illicit/recreational drugs/alcohol since last menstrual period: No 20. Any other: No Infection History 1. Live with someone with TB or exposed to TB: No 2. Rash or viral illness since last menstrual period: No 3. Hepatitis B,C: No Other (see comments) Source: [employer] Review of Systems Review of Systems Systems Reviewed: All systems reviewed, normal except as documented Constitutional Constitutional: Reports fatigue Endocrine Endocrine: Reports fatigue Exam General Limitations: no limitations General Appearance: alert, in no apparent distress, comfortable, cooperative, healthy appearing, well developed and well groomed Chest Chest inspection: Present normal inspection and symmetric chest wall rise Resp Respiratory exam: Present normal lung sounds bilaterally Card Cardiovascular exam: Present regular rate, normal rhythm and normal heart sounds Abdominal Abdominal exam: Present soft (gravid) and normal bowel sounds Psych Psychiatric exam: Present normal affect and normal mood Assessment & Plan Diagnosis / Problem List (1) Encounter for supervision of normal in multigravida in first trimester: Status: Acute (2) Uterine size-date discrepancy, unspecified trimester: Status: Acute (3) Advanced maternal age (AMA) in : Status: Acute Plan OB panel, CBC and hCG today. Schedule an ultrasound for viability. Ordered vitamins and patient can start them today. As comfort measures for first trimester discomforts. SAB precautions. Return in 4 weeks OB check Additional Plan Follow Up: 4 Weeks (OBC in 4 week) Office Procedures OB Clinic LOC & Office Proc's Nursing/Assessment Patient Status: Established Patient OB Clinic Nursing Assessment: Medication Reconciliation, Update PMH in EMR and Vital Signs OB Clinic Coordination of Care: AMA, Complex Care and Chronic Disease 1-5, Consent,records obtained, informed consent, Education Simp Pt/Fam, Lab and Imaging orders, Results/Orders obtained and Staff clarify orders Special Needs: Heart tones Miscellaneous Interventions: Blood/Urine Collection Established Patient Charge Established Patient Point Assignment: 185 Established Patient Point Charge: EP Level 5 (160-above) Urine HCG Ambulatory Location Ambulatory Dept Location: OB Clinic (POSITIVE RESULTS) Urine HCG HCG: Yes
[2025-02-02 13:34] VITALS: BP 113/79; PULSE 98; RESP 16; TEMP 36.5; O2SAT 98; BMI 29.0
== END 2025-02-02 14:31 | disposition home or self-care (01) ==
PROVIDERS: PCP Advanced Practice Midwife; Referring Provider Advanced Practice Midwife; Supervising Provider Advanced Practice Midwife; Visit Provider Advanced Practice Midwife
DX: O09.521 Supervision of elderly multigravida, first trimester (principal); Z3A.01 Less than 8 weeks gestation of pregnancy; O26.841 Uterine size-date discrepancy, first trimester
CPT/HCPCS: 99215; G0463

== ENCOUNTER 2025-02-11 10:49 | Outpatient (AMB) | payer MEDICAID, SELFPAY ==
--- NOTE | 2025-02-11 11:09 | OBCLNT_ITS ---
Vital Signs 02/11/25 11:10 Height 1.7 m Height Method Stated Weight 80.853 kg Weight Measurement Method Standing Scale BMI 27.9 BP 120/79 Blood Pressure Source Automatic Cuff Blood Pressure Location Right Upper Arm Position Sitting Respiration 20 Pulse 91 Pulse Source Monitor Temp 97.8 F Temp Source Temporal Artery Scan Pulse Oximetry (%) 98 Oxygen Delivery Method Room Air Allergies/Home Meds Allergies & Medications Allergies No Known Allergies Allergy (Verified 02/11/25 11:10) Medication Reconciliation vit no.95-ferrous fumarate 28 mg-folic acid 800 mcg tablet () 1 tab PO DAILY 90 days #90 tabs 02/02/25 [Rx Confirmed 02/11/25] Intake Visit Data Collection New Patient or Established: Established Patient (seen at [facility] within 3 years) Reason for Visit:: obc Do You Feel Safe at Home: Yes Authorities Contacted: N/A PCP or OBGYN visit in last 3 months: Yes Pain Present Currently: No Smoking Status Smoking Status: Never smoker Questionnaires Covid-19 Vaccine Questionnaire Has patient been vacinated for Covid-19 Have you been vacinated for Covid-19: Yes PHQ-9 PHQ-2 Over the last 2 weeks, how often have you been bothered by any of the following problems? 1. Little interest or pleasure in doing things: not at all 2. Feeling down, depressed, or hopeless: not at all Total score: 0 PHQ-9 8. Moving or speaking so slowly that other people could have noticed? - Or the opposite - being so fidgety or restless that you have been moving around a lot more than usual: not at all Source: Developed by Drs. Ridge Feng, Misti Stephen, Celestino Zapata and colleagues, with an educational jorge from [employer]. Depression screen completed yes Social History Living Situation History Lives With: Family Housing: House Tobacco History Smoking Status: Never smoker Second Hand Smoke Exposure: No Alcohol History Alcohol Intake: Never Domestic Abuse History Do You Feel Safe at Home: Yes Past Medical History Past Medical History Have you ever been diagnosed with any of the following: Neurological Problems Cerebrovascular Accident (CVA): No Transient Ischemic Attacks (TIA): No Dementia: No Alzheimer's Disease: No Parkinson's Disease: No Meningitis: No Seizures: No Multiple Sclerosis: No Guillain-[place] Syndrome: No Spina Bifida: No Hayes's Palsy: No Cardiology Problems Myocardial Infarction: No Cardiac Arrhythmia: No Atrial Fibrillation: No Angina: No Atherosclerotic Heart Disease: No Peripheral Vascular Disease: No Hypercholesterolemia: No Congestive Heart Failure: No Respiratory Problems Chronic Obstructive Pulmonary Disease (COPD): No Asthma: No Bronchitis: No Emphysema: No Hx Cough: No Cough: No Wheezing: No Chest Deformities: No Smoking: No Smoking Cessation Counseling: No Smoking Exposure: No Tobacco Use: No Stomache/Intestinal Problems Liver Cancer: No Hepatitis: No Cirrhosis: No Pancreatic Cancer: No Pancreatitis: No Celiac Disease: No Colorectal Cancer: No Genital/Urinary Problems Renal Disease: No Reproductive Problems Breast Cancer: No Pelvic Inflammatory Disease: No Previous Pregnancies: Yes Musculoskeletal Problems Muscular Dystrophy: No Myasthenia Gravis: No Marfan's Syndrome: No Bone Cancer: No Fractures: No Degenerative Joint Disease: No Osteomyelitis: No Poliovirus: No Head,Eye,Nose,Throat Problems Cataracts: No Glaucoma: No Blind: No Retinal Detachment: No Macular Degeneration: No Chronic Ear Infections: No Endocrine Problems Diabetes Mellitus Type 1: No Diabetes Mellitus Type 2: No Hypothyroidism: No Thyroid Cancer: No Parathyroid Disease: No Pituitary Disease: No Blood Problems Anemia: No Leukemia: No Hemophilia: No Thalassemia: No Sickle Cell Disease: No Clotting Problems: No Psychologic Problems Schizophrenia: No Recreational Drug Use: No Bipolar Disorder: No Other Problems Hospitalization: Yes Down Syndrome: No Developmental Delay: No Shingles: No Falls: No Blood Transfusions: No Blood Transfusion Reaction: No Anesthesia Reactions: No Organ Transplant: No Chemotherapy: No Radiation Therapy: No Hyperbaric Therapy: No MRSA: No Vancomycin-Resistant Enterococci: No Human Immunodeficiency Virus (HIV): No Chicken Pox: No Measles: No Mumps: No Rubella (Maori Measles): No Pertussis: No Clostridium Difficile: No Cervical Cancer: No Lung Cancer: No Ovarian Cancer: No Surgical History Hysterectomy: No Visit OB Visit Log OB Flowsheet Initial Weight: Not Recorded Date -?-?-?-?-?-?-?-?-?-?-?-?- EGA Weight Edema CTX Effacement BP Fundal ht Pres Dilation Effacement Station Visit Note Alb Glu FHR Mov 02/02/25 -?-?-?-?-?-?-?-?-?-?-?-?- 4w 1d 84.085 kg absent absent 113/79 35-year-old 7 para 5 SAB 1 for initial OB appointment. Patient's last. January 04, 2025. This makes her due date October 12, 2025. Denies SAB complaints at this time. No complaints of first trimester discomforts. Her and her are happy about the . She reports that her periods are every month. Denies social habits. Denies surgery. Denies chronic illness. Patient denies social habits. Patient reports that all her pregnancies were normal and the biggest baby weighed 7-1/2 pounds. Today I ordered OB panel. vitamins vitamin D and calcium will be ordered. Urine dip was negative pH was 7.0 and urowas 1.0. And test today was positive. Schedule ultrasound for viability. 02/11/25 -?-?-?-?-?-?-?-?-?-?-?-?- 5w 3d 80.853 kg absent absent 120/79 reports bleeding like a period and 02/07, no bleeding since, no N/V. monogamous. discussed HCG of 137 and OB panel results. labs + for RPR, TPA reactive, titer 1:32. discussed + syphilis with patient, discussed treatment for her and partner. handout given. no sex. advised patient to have partner treated at [facility]. No Bicillin 2.4 IM in stock, called and ordered from lab, will get 02/16/25. patient scheduled for Bicillin 2.4 on 02/16, advised weekly treatment x 3 as well as partner. repeat hcg x2. 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 review treatment for patient and partner, advise patient to have partner get tested and treated at PCP. No sex. order Bicillin 2.4mu from pharmacy for treatment. HCG x2. OB sono for r/o sab 02/18, sab precaution reviewed. rtc 02/16 for initiation of treatment Additional Plan Follow Up: 5 Days (bicillin 2.4 mu IM 4/28) Instructions: Syphilis Office Procedures OB Clinic LOC & Office Proc's Nursing/Assessment Patient Status: Established Patient OB Clinic Nursing Assessment: Medication Reconciliation, Update PMH in EMR and Vital Signs OB Clinic Coordination of Care: Complex Care and Chronic Disease 1-5, Education Complex Pt/Fam and Staff clarify orders Special Needs: Language special needs Established Patient Charge Established Patient Point Assignment: 85 Established Patient Point Charge: EP Level 3 (80-115)
[2025-02-11 11:10] VITALS: BP 120/79; PULSE 91; RESP 20; TEMP 36.6; O2SAT 98; BMI 27.9
== END 2025-02-11 11:58 | disposition home or self-care (01) ==
PROVIDERS: PCP Advanced Practice Midwife; Referring Provider Advanced Practice Midwife; Supervising Provider Advanced Practice Midwife; Visit Provider Advanced Practice Midwife
DX: O20.0 Threatened abortion (principal); Z3A.01 Less than 8 weeks gestation of pregnancy; O98.111 Syphilis complicating pregnancy, first trimester
CPT/HCPCS: 99213; G0463

== ENCOUNTER 2025-02-16 09:49 | Outpatient (AMB) | payer MEDICAID, SELFPAY ==
--- NOTE | 2025-02-16 10:04 | AMB.GYNCLNOT ---
Vital Signs 02/16/25 10:09 Height 1.7 m Height Method Stated Weight 83.121 kg Weight Measurement Method Standing Scale BMI 28.8 BP 113/79 Blood Pressure Source Automatic Cuff Blood Pressure Location Left Upper Arm Position Sitting Respiration 18 Pulse 90 Pulse Source Monitor Temp 97.8 F Temp Source Oral Pulse Oximetry (%) 97 Oxygen Delivery Method Room Air Allergies/Home Meds Allergies & Medications Allergies No Known Allergies Allergy (Verified 02/16/25 10:14) Medication Reconciliation vit no.95-ferrous fumarate 28 mg-folic acid 800 mcg tablet () 1 tab PO DAILY 90 days #90 tabs 02/02/25 [Rx Confirmed 02/16/25] Intake Visit Data Collection New Patient or Established: Established Patient (seen at [facility] within 3 years) Seen by Clinical Staff ONLY (RN/MA): No Sales Associate Fishing Required: No Do You Feel Safe at Home: Yes Authorities Contacted: N/A PCP or OBGYN visit in last 3 months: Yes Hx Now: No Are you currently on any form of Control: No Pain Present Currently: No Pain Scale Used: Almendarez-Tenorio/Numerical Pain scale:: 0 Smoking Status Smoking Status: Never smoker 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 1. Little interest or pleasure in doing things: not at all 2. Feeling down, depressed, or hopeless: not at all Total score: 0 PHQ-9 3. Trouble falling or staying asleep, or sleeping too much: Not at all 4. Feeling tired or having little energy: Not at all 5. Poor appetite or overeating: Not at all 6. Feeling bad about yourself - or that you are a failure or have let yourself or your family down: Not at all 7. Trouble concentrating on things, such as reading the newspaper or watching television: Not at all 8. Moving or speaking so slowly that other people could have noticed? - Or the opposite - being so fidgety or restless that you have been moving around a lot more than usual: not at all 9. Thoughts that you would be better off or of hurting yourself in some way: Not at all Total score: 0 Source: Developed by Drs. Ridge Feng, Misti Stephen, Celestino Zapata and colleagues, with an educational jorge from [employer]. Depression screen completed yes Social History Living Situation History Lives With: Family Housing: House Tobacco History Smoking Status: Never smoker Second Hand Smoke Exposure: No Alcohol History Alcohol Intake: Never Domestic Abuse History Do You Feel Safe at Home: Yes Past Medical History Past Medical History Have you ever been diagnosed with any of the following: Neurological Problems Cerebrovascular Accident (CVA): No Transient Ischemic Attacks (TIA): No Dementia: No Alzheimer's Disease: No Parkinson's Disease: No Meningitis: No Seizures: No Multiple Sclerosis: No Guillain-[place] Syndrome: No Spina Bifida: No Hayes's Palsy: No Cardiology Problems Myocardial Infarction: No Cardiac Arrhythmia: No Atrial Fibrillation: No Angina: No Atherosclerotic Heart Disease: No Peripheral Vascular Disease: No Hypercholesterolemia: No Congestive Heart Failure: No Respiratory Problems Chronic Obstructive Pulmonary Disease (COPD): No Asthma: No Bronchitis: No Emphysema: No Hx Cough: No Cough: No Wheezing: No Chest Deformities: No Smoking: No Smoking Cessation Counseling: No Smoking Exposure: No Tobacco Use: No Stomache/Intestinal Problems Liver Cancer: No Hepatitis: No Cirrhosis: No Pancreatic Cancer: No Pancreatitis: No Celiac Disease: No Colorectal Cancer: No Genital/Urinary Problems Renal Disease: No Reproductive Problems Breast Cancer: No Pelvic Inflammatory Disease: No Previous Pregnancies: Yes Musculoskeletal Problems Muscular Dystrophy: No Myasthenia Gravis: No Marfan's Syndrome: No Bone Cancer: No Fractures: No Degenerative Joint Disease: No Osteomyelitis: No Poliovirus: No Head,Eye,Nose,Throat Problems Cataracts: No Glaucoma: No Blind: No Retinal Detachment: No Macular Degeneration: No Chronic Ear Infections: No Endocrine Problems Diabetes Mellitus Type 1: No Diabetes Mellitus Type 2: No Hypothyroidism: No Thyroid Cancer: No Parathyroid Disease: No Pituitary Disease: No Blood Problems Anemia: No Leukemia: No Hemophilia: No Thalassemia: No Sickle Cell Disease: No Clotting Problems: No Psychologic Problems Schizophrenia: No Recreational Drug Use: No Bipolar Disorder: No Other Problems Hospitalization: Yes Down Syndrome: No Developmental Delay: No Shingles: No Falls: No Blood Transfusions: No Blood Transfusion Reaction: No Anesthesia Reactions: No Organ Transplant: No Chemotherapy: No Radiation Therapy: No Hyperbaric Therapy: No MRSA: No Vancomycin-Resistant Enterococci: No Human Immunodeficiency Virus (HIV): No Chicken Pox: No Measles: No Mumps: No Rubella (Italian Measles): No Pertussis: No Clostridium Difficile: No Cervical Cancer: No Lung Cancer: No Ovarian Cancer: No Surgical History Hysterectomy: No Assessment & Plan Diagnosis / Problem List (1) Syphilis, unspecified: Status: Acute Office Meds penicillin G benzathine 2,400,000 unit/4 mL intramuscular syringe Performing Provider: La Duenas CNM Performing Location: [facility] TRANSMISSION SYSTEMS OPERATOR Clinic Administered by: Lor Bailon MA on 02/16/25 10:17 Dose Route Admin Location Dispensed Lot Number Expiration Date [facility] News Gathering Technician 2.4 mmu IM LEFT GLUTE 4 mL [id number] 06/10/27 14765-738-95 [employer] [facility]
[2025-02-16 10:09] VITALS: BP 113/79; PULSE 90; RESP 18; TEMP 36.6; O2SAT 97; BMI 28.8
--- NOTE | 2025-02-16 10:32 | AMB.GYNCLNOT ---
Vital Signs 02/16/25 10:09 02/16/25 10:34 Height 1.7 m Height Method Stated Weight 83.121 kg Weight Measurement Method Standing Scale BMI 28.8 BP 113/79 113/79 Blood Pressure Source Automatic Cuff Blood Pressure Location Left Upper Arm Position Sitting Respiration 18 18 Pulse 90 90 Pulse Source Monitor Temp 97.8 F 97.8 F Temp Source Oral Pulse Oximetry (%) 97 97 Oxygen Delivery Method Room Air Allergies/Home Meds Allergies & Medications Allergies No Known Allergies Allergy (Verified 02/23/25 16:46) Medication Reconciliation vit no.95-ferrous fumarate 28 mg-folic acid 800 mcg tablet () 1 tab PO DAILY 90 days #90 tabs 02/02/25 [Rx Confirmed 02/16/25] Intake Visit Data Collection New Patient or Established: Established Patient (seen at [facility] within 3 years) Reason for Visit:: STI treatment Do You Feel Safe at Home: Yes Authorities Contacted: N/A PCP or OBGYN visit in last 3 months: Yes Smoking Status Smoking Status: Never smoker 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 1. Little interest or pleasure in doing things: not at all PHQ-9 3. Trouble falling or staying asleep, or sleeping too much: Not at all 4. Feeling tired or having little energy: Not at all 5. Poor appetite or overeating: Not at all 6. Feeling bad about yourself - or that you are a failure or have let yourself or your family down: Not at all 7. Trouble concentrating on things, such as reading the newspaper or watching television: Not at all 8. Moving or speaking so slowly that other people could have noticed? - Or the opposite - being so fidgety or restless that you have been moving around a lot more than usual: not at all Source: Developed by Drs. Ridge Feng, Misti Stephen, Celestino Zapata and colleagues, with an educational jorge from [employer]. Social History Living Situation History Lives With: Family Housing: House Tobacco History Smoking Status: Never smoker Second Hand Smoke Exposure: No Alcohol History Alcohol Intake: Never Domestic Abuse History Do You Feel Safe at Home: Yes Past Medical History Past Medical History Have you ever been diagnosed with any of the following: Neurological Problems Cerebrovascular Accident (CVA): No Transient Ischemic Attacks (TIA): No Dementia: No Alzheimer's Disease: No Parkinson's Disease: No Meningitis: No Seizures: No Multiple Sclerosis: No Guillain-[place] Syndrome: No Spina Bifida: No Hayes's Palsy: No Cardiology Problems Myocardial Infarction: No Cardiac Arrhythmia: No Atrial Fibrillation: No Angina: No Atherosclerotic Heart Disease: No Peripheral Vascular Disease: No Hypercholesterolemia: No Congestive Heart Failure: No Respiratory Problems Chronic Obstructive Pulmonary Disease (COPD): No Asthma: No Bronchitis: No Emphysema: No Hx Cough: No Cough: No Wheezing: No Chest Deformities: No Smoking: No Smoking Cessation Counseling: No Smoking Exposure: No Tobacco Use: No Stomache/Intestinal Problems Liver Cancer: No Hepatitis: No Cirrhosis: No Pancreatic Cancer: No Pancreatitis: No Celiac Disease: No Colorectal Cancer: No Genital/Urinary Problems Renal Disease: No Reproductive Problems Breast Cancer: No Pelvic Inflammatory Disease: No Previous Pregnancies: Yes Musculoskeletal Problems Muscular Dystrophy: No Myasthenia Gravis: No Marfan's Syndrome: No Bone Cancer: No Fractures: No Degenerative Joint Disease: No Osteomyelitis: No Poliovirus: No Head,Eye,Nose,Throat Problems Cataracts: No Glaucoma: No Blind: No Retinal Detachment: No Macular Degeneration: No Chronic Ear Infections: No Endocrine Problems Diabetes Mellitus Type 1: No Diabetes Mellitus Type 2: No Hypothyroidism: No Thyroid Cancer: No Parathyroid Disease: No Pituitary Disease: No Blood Problems Anemia: No Leukemia: No Hemophilia: No Thalassemia: No Sickle Cell Disease: No Clotting Problems: No Psychologic Problems Schizophrenia: No Recreational Drug Use: No Bipolar Disorder: No Other Problems Hospitalization: Yes Down Syndrome: No Developmental Delay: No Shingles: No Falls: No Blood Transfusions: No Blood Transfusion Reaction: No Anesthesia Reactions: No Organ Transplant: No Chemotherapy: No Radiation Therapy: No Hyperbaric Therapy: No MRSA: No Vancomycin-Resistant Enterococci: No Human Immunodeficiency Virus (HIV): No Chicken Pox: No Measles: No Mumps: No Rubella (Sammarinese Measles): No Pertussis: No Clostridium Difficile: No Cervical Cancer: No Lung Cancer: No Ovarian Cancer: No Surgical History Hysterectomy: No History of Present Illness HPI Narrative 35-year-old 7 para 5 here for treatment of positive RPR. Last. Was January 04, 2025. Patient had a complete SAB. Her hCG February 12 was 2. Pelvic ultrasound results are pending. Patient denies allergies. Denies chronic illness. Denies social habits. Denies surgeries. Patient is not sexually active. She reports that her partner is aware of positive RPR and has an appointment today for labs and treatment. Patient desires to use Depo-Provera for family-planning. Review of Systems Review of Systems Systems Reviewed: All systems reviewed, normal except as documented Results Objective Laboratory: RPR::1:32,TPA+, HC Assessment & Plan Diagnosis / Problem List (1) Syphilis, unspecified: Status: Acute (2) Complete miscarriage: Status: Acute Plan Bicillin 2.4 IM today, discuss safe sex, continue to urge partner to get treatment. no sex x 3 week, then condom use. discussed adherence to Bicillin 2.4 q week x3 for patient and partner. discuss side effect. rtc 1 week for Bicillin 2.4 #2 and depo 150 IM, discussed with patient Additional Plan Follow Up: 1 Week (bicillin 2.4 IM and depo) Office Procedures OB Clinic LOC & Office Proc's Nursing/Assessment Patient Status: Established Patient OB Clinic Nursing Assessment: BP Monitoring, Medication Reconciliation, Update PMH in EMR and Vital Signs OB Clinic Coordination of Care: Consent,records obtained, informed consent, Education Simp Pt/Fam, Results/Orders obtained and Staff clarify orders Established Patient Charge Established Patient Point Assignment: 80 Established Patient Point Charge: EP Level 3 (80-115) Injection/Vaccine Admin SQ Im Injection: Yes Office Meds penicillin G benzathine 2,400,000 unit/4 mL intramuscular syringe Performing Provider: La Duenas CNM Performing Location: [facility] TECHNICAL SALES MANAGER Clinic Administered by: Lor Bailon MA on 02/16/25 10:17 Dose Route Admin Location Dispensed Lot Number Expiration Date [facility] Fuel Buyer 2.4 mmu IM LEFT GLUTE 4 mL [id number] 06/10/27 [id number] [employer] [facility]
[2025-02-16 10:34] VITALS: BP 113/79; PULSE 90; RESP 18; TEMP 36.6; O2SAT 97
== END 2025-02-16 10:33 | disposition home or self-care (01) ==
LOC: HODSOBC 09:49
PROVIDERS: Supervising Provider Advanced Practice Midwife; Visit Provider Advanced Practice Midwife
DX: O03.9 Complete or unspecified spontaneous abortion without complication (principal); A53.9 Syphilis, unspecified
CPT/HCPCS: 96372; 99213; J0561; G0463

== ENCOUNTER 2025-02-23 16:12 | Outpatient (AMB) | payer MEDICAID, SELFPAY ==
[2025-02-23 16:19] VITALS: BP 116/76; PULSE 98; RESP 18; TEMP 36.2; O2SAT 99; BMI 28.8
--- NOTE | 2025-02-23 16:19 | AMB.OBVISIT ---
Vital Signs 02/23/25 16:19 Height 1.7 m Height Method Stated Weight 83.178 kg Weight Measurement Method Standing Scale BMI 28.8 BP 116/76 Blood Pressure Source Automatic Cuff Blood Pressure Location Left Upper Arm Position Sitting Respiration 18 Pulse 98 Pulse Source Monitor Temp 97.2 F Temp Source Oral Pulse Oximetry (%) 99 Oxygen Delivery Method Room Air Allergies/Home Meds Allergies & Medications Allergies No Known Allergies Allergy (Verified 02/23/25 16:21) Medication Reconciliation vit no.95-ferrous fumarate 28 mg-folic acid 800 mcg tablet () 1 tab PO DAILY 90 days #90 tabs 02/02/25 [Rx Confirmed 02/23/25] Intake Visit Data Collection New Patient or Established: Established Patient (seen at [facility] within 3 years) Seen by Clinical Staff ONLY (RN/MA): No Government Relations Director Required: No Do You Feel Safe at Home: Yes Authorities Contacted: N/A PCP or OBGYN visit in last 3 months: Yes Date of Last PCP or OBGYN visit: 02/16/25 Hx Now: Yes Are you currently on any form of Control: No Pain Present Currently: Yes Pain Scale Used: Almendarez-Tenorio/Numerical Pain scale:: 0 Smoking Status Smoking Status: Never smoker Questionnaires Covid-19 Vaccine Questionnaire Has patient been vacinated for Covid-19 Have you been vacinated for Covid-19: Yes PHQ-9 PHQ-2 Over the last 2 weeks, how often have you been bothered by any of the following problems? 1. Little interest or pleasure in doing things: not at all 2. Feeling down, depressed, or hopeless: not at all Total score: 0 PHQ-9 3. Trouble falling or staying asleep, or sleeping too much: Not at all 4. Feeling tired or having little energy: Not at all 5. Poor appetite or overeating: Not at all 6. Feeling bad about yourself - or that you are a failure or have let yourself or your family down: Not at all 7. Trouble concentrating on things, such as reading the newspaper or watching television: Not at all 8. Moving or speaking so slowly that other people could have noticed? - Or the opposite - being so fidgety or restless that you have been moving around a lot more than usual: not at all 9. Thoughts that you would be better off or of hurting yourself in some way: Not at all Total score: 0 If you checked off any problems, how difficult have these problems made it for you to do your work, take care of things at home, or get along with other people?: not difficult at all Source: Developed by Drs. Ridge Feng, Misti Stephen, Celestino Zapata and colleagues, with an educational jorge from [employer]. Depression screen completed yes Social History Living Situation History Lives With: Family Housing: House Tobacco History Smoking Status: Never smoker Second Hand Smoke Exposure: No Alcohol History Alcohol Intake: Never Domestic Abuse History Do You Feel Safe at Home: Yes Past Medical History Past Medical History Have you ever been diagnosed with any of the following: Neurological Problems Cerebrovascular Accident (CVA): No Transient Ischemic Attacks (TIA): No Dementia: No Alzheimer's Disease: No Parkinson's Disease: No Meningitis: No Seizures: No Multiple Sclerosis: No Guillain-[place] Syndrome: No Spina Bifida: No Hayes's Palsy: No Cardiology Problems Myocardial Infarction: No Cardiac Arrhythmia: No Atrial Fibrillation: No Angina: No Atherosclerotic Heart Disease: No Peripheral Vascular Disease: No Hypercholesterolemia: No Congestive Heart Failure: No Respiratory Problems Chronic Obstructive Pulmonary Disease (COPD): No Asthma: No Bronchitis: No Emphysema: No Hx Cough: No Cough: No Wheezing: No Chest Deformities: No Smoking: No Smoking Cessation Counseling: No Smoking Exposure: No Tobacco Use: No Stomache/Intestinal Problems Liver Cancer: No Hepatitis: No Cirrhosis: No Pancreatic Cancer: No Pancreatitis: No Celiac Disease: No Colorectal Cancer: No Genital/Urinary Problems Renal Disease: No Reproductive Problems Breast Cancer: No Pelvic Inflammatory Disease: No Previous Pregnancies: Yes Musculoskeletal Problems Muscular Dystrophy: No Myasthenia Gravis: No Marfan's Syndrome: No Bone Cancer: No Fractures: No Degenerative Joint Disease: No Osteomyelitis: No Poliovirus: No Head,Eye,Nose,Throat Problems Cataracts: No Glaucoma: No Blind: No Retinal Detachment: No Macular Degeneration: No Chronic Ear Infections: No Endocrine Problems Diabetes Mellitus Type 1: No Diabetes Mellitus Type 2: No Hypothyroidism: No Thyroid Cancer: No Parathyroid Disease: No Pituitary Disease: No Blood Problems Anemia: No Leukemia: No Hemophilia: No Thalassemia: No Sickle Cell Disease: No Clotting Problems: No Psychologic Problems Schizophrenia: No Recreational Drug Use: No Bipolar Disorder: No Other Problems Hospitalization: Yes Down Syndrome: No Developmental Delay: No Shingles: No Falls: No Blood Transfusions: No Blood Transfusion Reaction: No Anesthesia Reactions: No Organ Transplant: No Chemotherapy: No Radiation Therapy: No Hyperbaric Therapy: No MRSA: No Vancomycin-Resistant Enterococci: No Human Immunodeficiency Virus (HIV): No Chicken Pox: No Measles: No Mumps: No Rubella (Bulgarian Measles): No Pertussis: No Clostridium Difficile: No Cervical Cancer: No Lung Cancer: No Ovarian Cancer: No Surgical History Hysterectomy: No History of Present Illness HPI Narrative 35-year-old 7 para 5 for second Bicillin positive patient has a history of a positive RPR with a titer of 1-32 and tPA positive. Patient had an SAB 2 weeks ago. Her hCG was 2. She has not resumed menses yet. Patient is not sexually active. Patient reports partner went to get tested for syphilis at [facility]. Denies social habits. Denies surgery. Denies chronic illness. And patient wants to start Depo. No interval complaints Review of Systems Review of Systems Systems Reviewed: All systems reviewed, normal except as documented Care OB Visit Log OB Flowsheet Initial Weight: Not Recorded Date <del>?</del> EGA Weight Edema CTX Effacement BP Fundal ht Pres Dilation Effacement Station Visit Note Alb Glu FHR Mov 02/02/25 <del>?</del> 4w 1d 84.085 kg absent absent 113/79 35-year-old 7 para 5 SAB 1 for initial OB appointment. Patient's last. January 04, 2025. This makes her due date October 12, 2025. Denies SAB complaints at this time. No complaints of first trimester discomforts. Her and her are happy about the . She reports that her periods are every month. Denies social habits. Denies surgery. Denies chronic illness. Patient denies social habits. Patient reports that all her pregnancies were normal and the biggest baby weighed 7-1/2 pounds. Today I ordered OB panel. vitamins vitamin D and calcium will be ordered. Urine dip was negative pH was 7.0 and urowas 1.0. And test today was positive. Schedule ultrasound for viability. 02/11/25 <del>?</del> 5w 3d 80.853 kg absent absent 120/79 reports bleeding like a period and 02/07, no bleeding since, no N/V. monogamous. discussed HCG of 137 and OB panel results. labs + for RPR, TPA reactive, titer 1:32. discussed + syphilis with patient, discussed treatment for her and partner. handout given. no sex. advised patient to have partner treated at [facility]. No Bicillin 2.4 IM in stock, called and ordered from lab, will get 02/16/25. patient scheduled for Bicillin 2.4 on 02/16, advised weekly treatment x 3 as well as partner. repeat hcg x2. sono 02/18 for viability vs SAB, ER precaution NESHA Calculator Estimated Delivery Date Method Current WG Current Estimate 10/11/25 LMP (Certain) 7w 1d Results Objective Laboratory: negative preg test RPR+,TPA+, titer 1:32 Exam Narrative Physical exam: negative preg test General Limitations: no limitations General Appearance: alert, in no apparent distress, comfortable, cooperative, healthy appearing, well developed and well groomed Head Head exam: atraumatic, normocephalic and normal inspection Chest Chest inspection: Present normal inspection and symmetric chest wall rise Resp Respiratory exam: Present normal lung sounds bilaterally Card Cardiovascular exam: Present regular rate, normal rhythm and normal heart sounds Abdominal Abdominal exam: Present soft and normal bowel sounds Psych Psychiatric exam: Present normal affect and normal mood Assessment & Plan Diagnosis / Problem List (1) Encounter for Depo-Provera contraception: Status: Acute (2) Syphilis, unspecified: Status: Acute Plan Bicillin 2.4mg IM #2. Depo provera 150 IM today. review s/s of allergy with patient, no sex, discuss safe sex, advised partner to get treated prophylactically. RTC 1 week 3rd Bicillin, review depo side effect, compliance and effectiveness, walk 40 minute daily, vitamin d and calcium daily. rtc 12 week depo. will f/u on rpr 3 month after last bicillin Additional Plan Follow Up: 1 Day 1 Week (Bicillin #3) Office Procedures OB Clinic LOC & Office Proc's Nursing/Assessment Patient Status: Established Patient OB Clinic Nursing Assessment: BP Monitoring, Medication Reconciliation, Update PMH in EMR and Vital Signs OB Clinic Coordination of Care: Consent,records obtained, informed consent, Education Simp Pt/Fam, Results/Orders obtained and Staff clarify orders Special Needs: Heart tones Established Patient Charge Established Patient Point Assignment: 110 Established Patient Point Charge: EP Level 3 (80-115) Injection/Vaccine Admin Admin 2nd Vaccine: Yes Office Meds Depo-Provera 150 mg/mL intramuscular syringe Performing Provider: La Duenas CNM Performing Location: [facility] OPTICAL GOODS DRILL OPERATOR Clinic Administered by: Lor Bailon MA on 02/23/25 16:39 Dose Route Admin Location Dispensed Lot Number Expiration Date [facility] Electronic Service Technician 150 mg IM LEFT DELTOID 1 mL [id number] 03/21/29 [id number] [facility] penicillin G benzathine 2,400,000 unit/4 mL intramuscular syringe Performing Provider: La Duenas CNM Performing Location: [facility] OPTICAL GOODS DRILL OPERATOR Clinic Administered by: Lor Bailon MA on 02/23/25 16:28 Dose Route Admin Location Dispensed Lot Number Expiration Date [facility] Electronic Service Technician 2.4 mmu IM RIGHT GLUTE 4 mL [id number] 05/22/27 55403-926-53 [employer] [facility]
--- NOTE | 2025-02-23 16:21 | AMB.GYNCLNOT ---
Vital Signs 02/23/25 16:19 02/23/25 16:22 Height 1.7 m Height Method Stated Weight 83.178 kg Weight Measurement Method Standing Scale BMI 28.8 BP 116/76 116/76 Blood Pressure Source Automatic Cuff Blood Pressure Location Left Upper Arm Position Sitting Respiration 18 18 Pulse 98 98 Pulse Source Monitor Temp 97.2 F 97.2 F Temp Source Oral Pulse Oximetry (%) 99 99 Oxygen Delivery Method Room Air Allergies/Home Meds Allergies & Medications Allergies No Known Allergies Allergy (Verified 02/23/25 16:21) Medication Reconciliation vit no.95-ferrous fumarate 28 mg-folic acid 800 mcg tablet () 1 tab PO DAILY 90 days #90 tabs 02/02/25 [Rx Confirmed 02/23/25] Intake Smoking Status Smoking Status: Never smoker 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 1. Little interest or pleasure in doing things: not at all PHQ-9 8. Moving or speaking so slowly that other people could have noticed? - Or the opposite - being so fidgety or restless that you have been moving around a lot more than usual: not at all Total score: 0 Source: Developed by Drs. Ridge Feng, Misti Stephen, Celestino Zapata and colleagues, with an educational jorge from [employer]. Social History Living Situation History Lives With: Family Housing: House Tobacco History Smoking Status: Never smoker Second Hand Smoke Exposure: No Alcohol History Alcohol Intake: Never Past Medical History Past Medical History Have you ever been diagnosed with any of the following: Neurological Problems Cerebrovascular Accident (CVA): No Transient Ischemic Attacks (TIA): No Dementia: No Alzheimer's Disease: No Parkinson's Disease: No Meningitis: No Seizures: No Multiple Sclerosis: No Guillain-[place] Syndrome: No Spina Bifida: No Hayes's Palsy: No Cardiology Problems Myocardial Infarction: No Cardiac Arrhythmia: No Atrial Fibrillation: No Angina: No Atherosclerotic Heart Disease: No Peripheral Vascular Disease: No Hypercholesterolemia: No Congestive Heart Failure: No Respiratory Problems Chronic Obstructive Pulmonary Disease (COPD): No Asthma: No Bronchitis: No Emphysema: No Hx Cough: No Cough: No Wheezing: No Chest Deformities: No Smoking: No Smoking Cessation Counseling: No Smoking Exposure: No Tobacco Use: No Stomache/Intestinal Problems Liver Cancer: No Hepatitis: No Cirrhosis: No Pancreatic Cancer: No Pancreatitis: No Celiac Disease: No Colorectal Cancer: No Genital/Urinary Problems Renal Disease: No Reproductive Problems Breast Cancer: No Pelvic Inflammatory Disease: No Previous Pregnancies: Yes Musculoskeletal Problems Muscular Dystrophy: No Myasthenia Gravis: No Marfan's Syndrome: No Bone Cancer: No Fractures: No Degenerative Joint Disease: No Osteomyelitis: No Poliovirus: No Head,Eye,Nose,Throat Problems Cataracts: No Glaucoma: No Blind: No Retinal Detachment: No Macular Degeneration: No Chronic Ear Infections: No Endocrine Problems Diabetes Mellitus Type 1: No Diabetes Mellitus Type 2: No Hypothyroidism: No Thyroid Cancer: No Parathyroid Disease: No Pituitary Disease: No Blood Problems Anemia: No Leukemia: No Hemophilia: No Thalassemia: No Sickle Cell Disease: No Clotting Problems: No Psychologic Problems Schizophrenia: No Recreational Drug Use: No Bipolar Disorder: No Other Problems Hospitalization: Yes Down Syndrome: No Developmental Delay: No Shingles: No Falls: No Blood Transfusions: No Blood Transfusion Reaction: No Anesthesia Reactions: No Organ Transplant: No Chemotherapy: No Radiation Therapy: No Hyperbaric Therapy: No MRSA: No Vancomycin-Resistant Enterococci: No Human Immunodeficiency Virus (HIV): No Chicken Pox: No Measles: No Mumps: No Rubella (Croatian Measles): No Pertussis: No Clostridium Difficile: No Cervical Cancer: No Lung Cancer: No Ovarian Cancer: No Surgical History Hysterectomy: No Assessment & Plan Diagnosis / Problem List (1) Syphilis, unspecified: Status: Acute (2) Encounter for Depo-Provera contraception: Status: Acute Office Procedures OB Clinic LOC & Office Proc's Nursing/Assessment Patient Status: Established Patient OB Clinic Nursing Assessment: BP Monitoring, Medication Reconciliation, Update PMH in EMR and Vital Signs OB Clinic Coordination of Care: Consent,records obtained, informed consent, Education Simp Pt/Fam, Results/Orders obtained and Staff clarify orders Special Needs: Heart tones Established Patient Charge Established Patient Point Assignment: 110 Established Patient Point Charge: EP Level 3 (80-115)
--- NOTE | 2025-02-23 16:46 | GYNCLNT_ITS ---
Vital Signs 02/23/25 16:19 02/23/25 16:47 Height 1.7 m Height Method Stated Weight 83.178 kg Weight Measurement Method Standing Scale BMI 28.8 BP 116/76 116/76 Blood Pressure Source Automatic Cuff Blood Pressure Location Left Upper Arm Position Sitting Respiration 18 18 Pulse 98 98 Pulse Source Monitor Temp 97.2 F 97.2 F Temp Source Oral Pulse Oximetry (%) 99 99 Oxygen Delivery Method Room Air Allergies/Home Meds Allergies & Medications Allergies No Known Allergies Allergy (Verified 02/23/25 16:46) Medication Reconciliation vit no.95-ferrous fumarate 28 mg-folic acid 800 mcg tablet () 1 tab PO DAILY 90 days #90 tabs 02/02/25 [Rx Confirmed 02/16/25] Intake Visit Data Collection New Patient or Established: Established Patient (seen at [facility] within 3 years) Reason for Visit:: sti treatment Seen by Clinical Staff ONLY (RN/MA): No Aircraft Manager Required: No Do You Feel Safe at Home: Yes Authorities Contacted: N/A PCP or OBGYN visit in last 3 months: Yes Date of Last PCP or OBGYN visit: 02/16/25 Hx Now: Yes Are you currently on any form of Control: No Pain Present Currently: No Pain Scale Used: Almendarez-Tenorio/Numerical Pain scale:: 0 Smoking Status Smoking Status: Never smoker 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 1. Little interest or pleasure in doing things: not at all 2. Feeling down, depressed, or hopeless: not at all Total score: 0 PHQ-9 3. Trouble falling or staying asleep, or sleeping too much: Not at all 4. Feeling tired or having little energy: Not at all 5. Poor appetite or overeating: Not at all 6. Feeling bad about yourself - or that you are a failure or have let yourself or your family down: Not at all 7. Trouble concentrating on things, such as reading the newspaper or watching television: Not at all 8. Moving or speaking so slowly that other people could have noticed? - Or the opposite - being so fidgety or restless that you have been moving around a lot more than usual: not at all 9. Thoughts that you would be better off or of hurting yourself in some way: Not at all Total score: 0 If you checked off any problems, how difficult have these problems made it for you to do your work, take care of things at home, or get along with other people?: not difficult at all Source: Developed by Drs. Ridge Feng, Misti Stephen, Celestino Zapata and colleagues, with an educational jorge from [employer]. Depression screen completed yes Social History Living Situation History Lives With: Family Housing: House Tobacco History Smoking Status: Never smoker Second Hand Smoke Exposure: No Alcohol History Alcohol Intake: Never Domestic Abuse History Do You Feel Safe at Home: Yes Past Medical History Past Medical History Have you ever been diagnosed with any of the following: Neurological Problems Cerebrovascular Accident (CVA): No Transient Ischemic Attacks (TIA): No Dementia: No Alzheimer's Disease: No Parkinson's Disease: No Meningitis: No Seizures: No Multiple Sclerosis: No Guillain-[place] Syndrome: No Spina Bifida: No Hayes's Palsy: No Cardiology Problems Myocardial Infarction: No Cardiac Arrhythmia: No Atrial Fibrillation: No Angina: No Atherosclerotic Heart Disease: No Peripheral Vascular Disease: No Hypercholesterolemia: No Congestive Heart Failure: No Respiratory Problems Chronic Obstructive Pulmonary Disease (COPD): No Asthma: No Bronchitis: No Emphysema: No Hx Cough: No Cough: No Wheezing: No Chest Deformities: No Smoking: No Smoking Cessation Counseling: No Smoking Exposure: No Tobacco Use: No Stomache/Intestinal Problems Liver Cancer: No Hepatitis: No Cirrhosis: No Pancreatic Cancer: No Pancreatitis: No Celiac Disease: No Colorectal Cancer: No Genital/Urinary Problems Renal Disease: No Reproductive Problems Breast Cancer: No Pelvic Inflammatory Disease: No Previous Pregnancies: Yes Musculoskeletal Problems Muscular Dystrophy: No Myasthenia Gravis: No Marfan's Syndrome: No Bone Cancer: No Fractures: No Degenerative Joint Disease: No Osteomyelitis: No Poliovirus: No Head,Eye,Nose,Throat Problems Cataracts: No Glaucoma: No Blind: No Retinal Detachment: No Macular Degeneration: No Chronic Ear Infections: No Endocrine Problems Diabetes Mellitus Type 1: No Diabetes Mellitus Type 2: No Hypothyroidism: No Thyroid Cancer: No Parathyroid Disease: No Pituitary Disease: No Blood Problems Anemia: No Leukemia: No Hemophilia: No Thalassemia: No Sickle Cell Disease: No Clotting Problems: No Psychologic Problems Schizophrenia: No Recreational Drug Use: No Bipolar Disorder: No Other Problems Hospitalization: Yes Down Syndrome: No Developmental Delay: No Shingles: No Falls: No Blood Transfusions: No Blood Transfusion Reaction: No Anesthesia Reactions: No Organ Transplant: No Chemotherapy: No Radiation Therapy: No Hyperbaric Therapy: No MRSA: No Vancomycin-Resistant Enterococci: No Human Immunodeficiency Virus (HIV): No Chicken Pox: No Measles: No Mumps: No Rubella (Tajik Measles): No Pertussis: No Clostridium Difficile: No Cervical Cancer: No Lung Cancer: No Ovarian Cancer: No Surgical History Hysterectomy: No History of Present Illness HPI Narrative 35-year-old 7 para 5 SAB 1 for second Bicillin. 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 Patient is 2 weeks post SAB. Last Bicillin was given February 16. Patient has told her partner to go get tested for positive syphilis and STIs. Patient states that partner tested negative. I advised patient that she is to ensure that her partner goes back and gets treated prophylactically. Patient has not started her period yet. Patient is not sexually active. Denies social habits. Denies surgery. Denies allergies. Patient would like to start on Depo. Patient used Depo in the past no problems Review of Systems Review of Systems Systems Reviewed: All systems reviewed, normal except as documented Exam Narrative Physical exam: negative preg test General Limitations: no limitations General Appearance: alert, in no apparent distress, comfortable, cooperative, healthy appearing, well developed and well groomed Head Head exam: atraumatic, normocephalic and normal inspection Chest Chest inspection: Present normal inspection and symmetric chest wall rise Resp Respiratory exam: Present normal lung sounds bilaterally Card Cardiovascular exam: Present regular rate, normal rhythm and normal heart sounds Abdominal Abdominal exam: Present soft and normal bowel sounds Psych Psychiatric exam: Present normal affect and normal mood Results Objective Laboratory: negative preg test RPR+,+TPA titer 1:32 Assessment & Plan Diagnosis / Problem List (1) Encounter for Depo-Provera contraception: Status: Acute (2) Syphilis, unspecified: Status: Acute Plan Depo-Provera 150 mg IM today. Bicillin 2.4 units IM x 1,#2. advised partner to get treated now. no sex, discuss safe sex. review depo side effect and effectiveness, walk 40 minute daily, vitamin D and calcium daily. rtc 1 week for #3 Bicillin 2.4 and 12 week depo. repeat RPR 3 month after last bicillin. RTC 1 week Additional Plan Follow Up: 1 Day 1 Week (Bicillin #3) Office Procedures OB Clinic LOC & Office Proc's Nursing/Assessment Patient Status: Established Patient OB Clinic Nursing Assessment: BP Monitoring, Medication Reconciliation, Update PMH in EMR and Vital Signs OB Clinic Coordination of Care: Consent,records obtained, informed consent, Education Simp Pt/Fam, Results/Orders obtained and Staff clarify orders Established Patient Charge Established Patient Point Assignment: 80 Established Patient Point Charge: EP Level 3 (80-115) Injection/Vaccine Admin Admin 2nd Vaccine: Yes Office Meds Depo-Provera 150 mg/mL intramuscular syringe Performing Provider: La Duenas CNM Performing Location: [facility] STOCK OR DELIVERY CLERK Clinic Administered by: Lor Bailon MA on 02/23/25 16:39 Dose Route Admin Location Dispensed Lot Number Expiration Date [facility] Data Entry Machine Operator 150 mg IM LEFT DELTOID 1 mL [id number] 03/21/29 05256-577-92 [facility] penicillin G benzathine 2,400,000 unit/4 mL intramuscular syringe Performing Provider: La Duenas CNM Performing Location: [facility] STOCK OR DELIVERY CLERK Clinic Administered by: Lor Bailon MA on 02/23/25 16:28 Dose Route Admin Location Dispensed Lot Number Expiration Date [employer] Data Entry Machine Operator 2.4 mmu IM RIGHT GLUTE 4 mL [id number] 05/22/27 [id number] [employer] [facility]
[2025-02-23 16:47] VITALS: BP 116/76; PULSE 98; RESP 18; TEMP 36.2; O2SAT 99
== END 2025-02-23 16:42 | disposition home or self-care (01) ==
LOC: HODSOBC 16:12
PROVIDERS: Supervising Provider Advanced Practice Midwife; Visit Provider Advanced Practice Midwife
DX: Z30.013 Encounter for initial prescription of injectable contraceptive (principal); A53.9 Syphilis, unspecified
CPT/HCPCS: 90472; 96372; 99213; J0561; J3490; G0463

== ENCOUNTER 2025-03-02 15:27 | Outpatient (AMB) | payer MEDICAID, SELFPAY ==
[2025-03-02 15:40] VITALS: BP 127/78; PULSE 94; RESP 18; TEMP 36.6; O2SAT 98; BMI 28.4
--- NOTE | 2025-03-02 15:40 | GYNCLNT_ITS ---
Vital Signs 03/02/25 15:40 Height 1.7 m Height Method Stated Weight 82.1 kg Weight Measurement Method Standing Scale BMI 28.4 BP 127/78 Blood Pressure Source Automatic Cuff Blood Pressure Location Left Upper Arm Position Sitting Respiration 18 Pulse 94 Pulse Source Monitor Temp 97.8 F Temp Source Temporal Artery Scan Pulse Oximetry (%) 98 Oxygen Delivery Method Room Air Allergies/Home Meds Allergies & Medications Allergies No Known Allergies Allergy (Verified 03/02/25 15:41) Intake Visit Data Collection New Patient or Established: Established Patient (seen at [facility] within 3 years) Reason for Visit:: bicillin 2.4 IM, f/u on depo Do You Feel Safe at Home: Yes Authorities Contacted: N/A PCP or OBGYN visit in last 3 months: Yes Pain Present Currently: No Smoking Status Smoking Status: Never smoker 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 Menstrual regularity: regular Flow: normal Monthly: Yes How many days does period last: 6 Menopausal: No Currently sexually active: Yes 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 1. Little interest or pleasure in doing things: not at all 2. Feeling down, depressed, or hopeless: not at all Total score: 0 PHQ-9 8. Moving or speaking so slowly that other people could have noticed? - Or the opposite - being so fidgety or restless that you have been moving around a lot more than usual: not at all Source: Developed by Drs. Ridge Feng, Misti Stephen, Celestino Zapata and colleagues, with an educational jorge from [employer]. Depression screen completed yes Social History Living Situation History Lives With: Family Housing: House Tobacco History Smoking Status: Never smoker Second Hand Smoke Exposure: No Alcohol History Alcohol Intake: Never Domestic Abuse History Do You Feel Safe at Home: Yes History of Present Illness HPI Narrative 35 yo 7p5 for Bicillin 2.4 IM #3, no menses due to depo. depo started 02/23/25, no ACHES. no interval complaints. happy with method. NKA. no PMH,no social habit,no surgery. reports partner is currently getting treated with Bicillin as directed. no interval complaints Review of Systems Review of Systems Systems Reviewed: All systems reviewed, normal except as documented Exam General Limitations: no limitations General Appearance: alert, in no apparent distress, comfortable, cooperative, healthy appearing, well developed and well groomed Head Head exam: atraumatic, normocephalic and normal inspection Resp Respiratory exam: Present normal lung sounds bilaterally Card Cardiovascular exam: Present regular rate, normal rhythm and normal heart sounds Abdominal Abdominal exam: Present soft and normal bowel sounds Psych Psychiatric exam: Present normal affect and normal mood Results Objective Laboratory: negative preg test Office Procedures OB Clinic LOC & Office Proc's Nursing/Assessment Patient Status: Established Patient OB Clinic Nursing Assessment: BP Monitoring, Medication Reconciliation, Update PMH in EMR and Vital Signs OB Clinic Coordination of Care: Complex Care and Chronic Disease 1-5, Education Complex Pt/Fam and Staff clarify orders Established Patient Charge Established Patient Point Assignment: 100 Established Patient Point Charge: EP Level 3 (80-115) Injection/Vaccine Admin SQ Im Injection: Yes Assessment & Plan Diagnosis / Problem List (1) Syphilis, unspecified: Status: Acute (2) Encounter for Depo-Provera contraception: Status: Acute Plan preg test today, discuss safe sex and condom x 2 week. Bicillin 2.4u today. f/u 3 month for RPR and repeat depo. walk 40 minute daily, vitamin D and calcium daily. Additional Plan Follow Up: 3 Months (+RPR f/u and depo)
== END 2025-03-02 16:03 | disposition home or self-care (01) ==
LOC: HODSOBC 15:27
PROVIDERS: Supervising Provider Advanced Practice Midwife; Visit Provider Advanced Practice Midwife
DX: Z30.42 Encounter for surveillance of injectable contraceptive (principal); A53.9 Syphilis, unspecified
CPT/HCPCS: 96372; 99213; J0561; G0463

== ENCOUNTER 2025-08-29 03:05 | Emergency (ER) | payer MEDICAID, SELFPAY ==
[2025-08-29 03:06] VITALS: BMI 30.9
[2025-08-29 03:17] VITALS: BP 126/83; PULSE 92; RESP 18; TEMP 36.7; O2SAT 98
--- NOTE | 2025-08-29 03:28 | PD.EDRME ---
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 Exam: Well-appearing, no acute distress Clinical Impression: Vaginal bleeding in
--- NOTE | 2025-08-29 03:29 | XR_ITS ---
Examination: OB Transvaginal ultrasound of the pelvis, complete Technique: Transvaginal sonographic images pelvis performed using alexandre scale imaging Exam date and time: August 29, 2025, 0359 hours INDICATIONS: Vaginal bleeding and pelvic pain beginning yesterday. FINDINGS: Uterus 12.2 x 8.8 cm, CRL 0.9 cm corresponds to 6 weeks 6 days gestational age Cardiac motion 133 bpm Right ovary 2.5 cm arterial flow Left ovary obscured by bowel gas IMPRESSION: Viable intrauterine gestation 6 weeks 6 days.
[2025-08-29 04:20] LABS: Collection Type, Urine Clean Catch
[2025-08-29 04:26] LABS: Bilirubin,Urine Negative (Negative); Blood,Urine Trace (Negative); Clarity,Urine Clear (Clear/Hazy); Color,Urine Colorless (Lt Yel-Yel); Glucose, Urine Negative (Negative); Ketones,Urine Negative (Negative); Leukocyte Esterase,Urine Negative (Negative); Nitrite,Urine Negative (Negative); PH,Urine 7.0 (5.0-7.0); Protein,Urine Negative (Neg - Trace); RBC,Urine < 1 /hpf (0-3); Specific Gravity,Urine 1.008 (1.001-1.035); Squamous Epithelial Cell,Urine 1 /hpf (0-5); Urobilinogen,Urine Negative mg/dL (0.0-1.0); WBC,Urine 1 /hpf (0-5)
--- NOTE | 2025-08-29 04:49 | EDNOTE_ITS ---
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 No recent fever, chills, vomiting, or diarrhea. No reported dysuria. PMH: Negative PSH: Non-contributory Allergies: None reported Social: Non-smoker, Non-drinker, No illicit drug abuse Exam: Well-appearing, no acute distress Impression: Vaginal bleeding in Related Data Allergies Allergy/AdvReac Type Severity Reaction Status Date / Time No Known Allergies Allergy Verified 08/29/25 03:11 Review of Systems Review of Systems Systems Reviewed: All systems reviewed, normal except as documented Past Medical History Past Medical History REPRODUCTIVE: Positive Previous Pregnancies OTHER HISTORY: Positive Hospitalization ED Exam Narrative Physical exam: GEN. APPEARANCE: The patient is alert awake oriented X-3 slightly tearful, sitting down comfortably, does not look ill/toxic. Patient has good eye contact. Patient is cooperative. VITALS: All vitals were reviewed and the pulse ox is 98%, which is normal according to my interpretation HEENT: Normocephalic, atraumatic and nontender. Pupils are equal and reactive. Oral mucosa is moist. NECK: Supple, nontender, no meningismus, no JVD. There is no thyromegaly and no lymphadenopathy. CHEST: Nontender on palpation no deformity and no crepitus. CARDIOVASCULAR: Heart regular rhythm, no murmur or gallop rub or extra beats. LUNGS: Clear to auscultation bilaterally with symmetrical chest rise. No laboring tachypnea or wheezing. No intercostal subcostal retraction. No rales and no rhonchi. ABDOMEN: Soft, flat, localized tenderness to mid-epigastrium, no guarding or rebound tenderness. There are no abnormal masses palpated. No pulsatile masses or bruits. Active and normal bowel sounds. EXTREMITIES: Normal inspection and palpation. No edema. No cyanosis. Patient is able to move all 4 extremities well SKIN: Warm and dry, no rashes noted. MUSCULOSKELETAL: No lumbar or midline bony tenderness. There is no CVA tenderness. No paraspinal muscle spasm or tenderness. NEURO: Cranial nerves II through XII grossly intact. There are no focal neurologic deficits noted. GCS is 15 PSYCHIATRIC: Patient is in normal mood and affect, cooperative. LYMPHATICS: No major lymphadenopathy noted. Course Quality Measures none Orders Category Date Time Status US OB transvaginal Stat Exams 08/29/25 03:29 Taken Beta HCG,Quantitative Stat Lab 08/29/25 03:29 Ordered CBC Stat Lab 08/29/25 03:29 Ordered CMP [Comprehensive Metabolic Panel] Stat Lab 08/29/25 03:29 Ordered UA [Urinalysis] Stat Lab 08/29/25 03:30 Completed mg Hyd/Al Hyd/Nunu Susp [Maalox Susp] Med 08/29/25 04:58 Discontinued 30 ml PO X1 ONE Vital Signs Vital signs: Vital Signs Temperature 98.1 F 08/29/25 03:17 Pulse Rate 92 08/29/25 03:17 Respiratory Rate 18 08/29/25 03:17 Blood Pressure 126/83 08/29/25 03:17 Pulse Oximetry (%) 98 08/29/25 03:17 Oxygen Delivery Method Room Air 08/29/25 03:17 Vaginal Bleeding MDM Narrative MDM Narrative: Scribe Attestation: Eulalia Jackson am scribing for and in the presence of Dr. Hernadez. Provider Notation: Although this document has been carefully reviewed, there may still be some phonetic and other typographical errors. These errors are purely grammatical due to imperfections in the software program and should not be construed in any way to compromise the substance of the patient's medical care during this visit. Patient at EGA of 6 weeks by recent positive test now presenting with vaginal spotting and epigastric abdominal pain. No recent fever, chills, vomiting, or diarrhea. Please see PE findings. Laboratory markers including CBC and serum chemistries demonstrated normal WBC. Hemoglobin and platelet counts are normal. UA without signs of infection and quantitative HCG at 259. Pelvic US Maalox administered. Will formally disposition based upon results. ADD; Pelvic US demonstrates 6.6 weeks embryo with 133 HR, no adnexal masses, or free fluid in the pelvis. 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 Final diagnoses include threatened AB and dispepsia. Patient data External records reviewed:: [facility] previous records (Reviewed prior ED records from 10/28/24. Patient was seen for Vaginal bleeding.) Clinical information provided by:: patient Social determinants that could affect healthcare access:: none Patient has the following chronic illnesses:: None reported How is presenting disease/condition affected by chronic disease/condition?: no chronic disease Evaluation data The following diagnostics were reviewed and interpreted by me:: lab results and radiology exam(s) Lab and/or radiology exams considered but not ordered:: None Interpretation Summary: RADIOLOGY Transvaginal US: Pending official radiology repport. Medications / Prescriptions Medications or Prescriptions considered but not ordered:: None Medication administrations:: Medication Administration History Discontinued Medications Al Hydrox/Mg Hydrox/Simethicone (Mg Hyd/Al Hyd/Nunu (Maalox Reg) Susp 30 Ml Udc) 30 ml PO X1 ONE Stop: 08/29/25 04:59 See above if any Consultations Consultation(s) initiated? (list below): No Diagnosis Vaginal Bleeding Differential Diagnosis: threatened , dysfunctional uterine bleeding, incomplete , ectopic without intrauterine and vaginal bleeding Most likely diagnosis given after review of the tests above:: Threatened AB and dyspepsia Admission Indicated Admission indicated?: not indicated Explain why admission is indicated or not indicated:: Patient does not meet admission criteria Admission Request Was there a request for admission?: No Disposition Plan Disposition Plan: Discharge Discharge Attestation Discharge Attestation: The patient and all family members were given an opportunity to ask questions and understood the discharge instructions. Discharge instructions specifically effects, indications for sooner follow up or return to the emergency department, and the expected course of current diagnosis. Patient condition: Stable Discharge Plan Plan Patient Disposition: HOME (Self Care) Prescriptions/Referrals Prescriptions/Med Rec: No Action Bicillin L-A 2,400,000 unit/4 mL syringe 2.4 unit IM ONCE Qty: 4 0RF Referrals: No Primary/Family,Physician [Primary Care Provider] - In 1 week Problem List Clinical Impression: Threatened in first trimester, Dyspepsia Patient/Caregiver Discharge Instructions Print Language: Malay Stand Alone Forms: Mi Award Info., Patient Portal Info Letter
--- NOTE | 2025-08-29 05:20 | PRELIM_ITS ---
Obstetric ultrasound ( transvaginal) with Doppler and wave Doppler spectral analysis. August 29, 2025 at 0359 hours Clinical history: Vaginal bleeding. Technique: Real-time ultrasound was performed using Duplex scanning including arterial inflow, venous outflow, color and spectral Doppler analysis of both ovaries. Comparison: None available at the time of this report. Findings: There is an intrauterine gestation with a single live fetus of mean gestational age 6 weeks and 6 days (CRL= 0.91 cm). cardiac activity is present at heart rate of 133 beats per minute. The uterus measures 12.2 x 6.7 x 8.8 cm. The right ovary measures 2.3 x 2.0 x 2.5 cm, corpus luteum noted. The left ovary was not visualized. Normal blood flow in the right ovary with normal wave Doppler spectral analysis. There is free fluid in the pelvis. Impression: Intrauterine gestation with a single live fetus of mean gestational age 6 weeks and 6 days. Report Electronically Signed By: Charanjit Aleman 08/29/2025 5:19:27 AM [EST]
[2025-08-29 05:23] LABS: Basophils # (Auto) 0.0 Thou/mm3 (0.0-0.2); Basophils % (Auto) 0 % (0-2.5); Eosinophils # (Auto) 0.0 Thou/mm3 (0.0-0.5); Eosinophils % (Auto) 0 % (0-10); Hematocrit 39.7 % (36.0-46.0); Hemoglobin 13.4 g/dL (12.0-16.0); Immature Granulocytes Auto 0.04 Thou/mm3 (0.00-0.00); Lymphocytes # (Auto) 1.6 Thou/mm3 (1.0-4.8); Lymphocytes % (Auto) 14 % (10-50); Mean Corpuscular HGB Conc 33.8 g/dl (31.0-37.0); Mean Corpuscular Hemoglobin 28.6 pg (25.0-35.0); Mean Corpuscular Volume 85 fL (80-100); Monocytes # (Auto) 0.6 Thou/mm3 (0.0-0.8); Monocytes % (Auto) 5 % (0-12); Neutrophils # (Auto) 9.6 Thou/mm3 (1.8-7.7); Neutrophils % (Auto) 81 % (37-80); Nucleated Red Blood Cell # 0.00 Thou/mm3 (0.00-0.00); Nucleated Red Blood Cell % 0 /100 WBC (0); Platelet Count 290 Thou/mm3 (140-440); RDW Standard Deviation 42.2 fL (36.4-46.3); Red Blood Count 4.68 Miln/mm3 (4.00-5.20); White Blood Count 11.9 Thou/mm3 (3.6-11.0)
[2025-08-29 05:54] LABS: Alanine Aminotransferase 22 U/L (10-49); Albumin, Serum 4.6 gm/dL (3.5-5.0); Albumin/Globulin Ratio 1.8 (1.2-2.2); Alkaline Phosphatase 92 U/L (46-116); Anion Gap 9 (7-16); Aspartate Amino Transferase 18 U/L (0-34); BUN/Creatinine Ratio 13 Ratio (12-20); Bilirubin,Total 0.4 mg/dL (0.3-1.2); Blood Urea Nitrogen 8 mg/dL (9-23); Calcium 9.6 mg/dL (8.3-10.6); Calcium (Corrected) 9.6 mg/dL (8.5-10.1); Carbon Dioxide 24.6 mMol/L (20.0-31.0); Chloride 104 mMol/L (98-107); Creatinine (Component) 0.6 mg/dL (0.6-1.3); Estimated Creatinine Clearance 134.0 mL/min (>60); Globulin 2.6 gm/dL (2.3-3.5); Glucose 103 mg/dL (74-106); Osmolality,Calculated 273 (275-295); Potassium 4.3 mMol/L (3.4-5.1); Sodium 138 mMol/L (136-145); Total Protein 7.2 gm/dL (5.7-8.2); eGFR > 60 See Note
[2025-08-29] MEDS: MG HYD/AL HYD/SIME (Maalox Reg) SUSP 30 ML UDC PO (06:05)
[2025-08-29 06:08] VITALS: RESP 16
== END 2025-08-29 06:09 | disposition home or self-care (01) ==
PROVIDERS: Physician Assistant; Emergency Provider Emergency Medicine
DX: O20.0 Threatened abortion (principal); Z3A.01 Less than 8 weeks gestation of pregnancy
CPT/HCPCS: 36415; 76817; 80053; 81001; 84702; 85025; 99283; A9270

== ENCOUNTER 2025-09-21 13:00 | Outpatient (AMB) | payer MEDICAID, SELFPAY ==
[2025-09-21 13:23] VITALS: BP 117/82; PULSE 93; RESP 18; TEMP 36.4; O2SAT 97; BMI 32.0
--- NOTE | 2025-09-21 13:23 | AMB.OBINITIA ---
Vital Signs 09/21/25 13:23 Height 1.63 m Height Method Stated Weight 85.049 kg Weight Measurement Method Standing Scale BMI 32.0 BP 117/82 Blood Pressure Source Automatic Cuff Blood Pressure Location Right Upper Arm Position Sitting Respiration 18 Pulse 93 Pulse Source Monitor Temp 97.5 F Temp Source Temporal Artery Scan Pulse Oximetry (%) 97 Oxygen Delivery Method Room Air Allergies/Home Meds Allergies & Medications Allergies No Known Allergies Allergy (Verified 09/21/25 13:24) Medication Reconciliation famotidine 20 mg tablet (Pepcid) 20 mg PO BID #30 tabs 08/29/25 [Rx Confirmed 09/21/25] metoclopramide HCl 5 mg tablet (Reglan) 5 mg PO Q12H #30 tabs 08/29/25 [Rx Confirmed 09/21/25] Intake Visit Data Collection New Patient or Established: Established Patient (seen at [facility] within 3 years) Reason for Visit:: OBI Seen by Clinical Staff ONLY (RN/MA): No Showroom Salesperson Required: Yes Showroom Salesperson's name/title: MYKEL RODRIGUEZ MA Do You Feel Safe at Home: Yes Authorities Contacted: N/A PCP or OBGYN visit in last 3 months: No Hx Now: Yes Are you currently on any form of Control: No Pain Present Currently: No Pain Scale Used: Almendarez-Tenorio/Numerical Pain scale:: 0 Smoking Status Smoking Status: Never smoker Immunizations Flu Vaccine in the Last 12 Months: No Flu Vaccine Exclusion Criteria: No Exclusion Criteria Questionnaires Covid-19 Vaccine Questionnaire Has patient been vacinated for Covid-19 Have you been vacinated for Covid-19: No PHQ-9 PHQ-2 Over the last 2 weeks, how often have you been bothered by any of the following problems? 1. Little interest or pleasure in doing things: not at all 2. Feeling down, depressed, or hopeless: not at all Total score: 0 PHQ-9 3. Trouble falling or staying asleep, or sleeping too much: Not at all 4. Feeling tired or having little energy: Not at all 5. Poor appetite or overeating: Not at all 6. Feeling bad about yourself - or that you are a failure or have let yourself or your family down: Not at all 7. Trouble concentrating on things, such as reading the newspaper or watching television: Not at all 8. Moving or speaking so slowly that other people could have noticed? - Or the opposite - being so fidgety or restless that you have been moving around a lot more than usual: not at all 9. Thoughts that you would be better off or of hurting yourself in some way: Not at all Total score: 0 If you checked off any problems, how difficult have these problems made it for you to do your work, take care of things at home, or get along with other people?: not difficult at all Source: Developed by Drs. Ridge Feng, Misti Stephen, Celestino Zapata and colleagues, with an educational jorge from [employer]. Depression screen completed yes Social History Living Situation History Marital Status: Lives With: Family Housing: House Tobacco History Smoking Status: Never smoker Second Hand Smoke Exposure: No Alcohol History Alcohol Intake: Never Domestic Abuse History Do You Feel Safe at Home: Yes History of Present Illness HPI Narrative The patient is a 35-year-old -0-1-5 presents for a new OB appointment. She denies vaginal bleeding and feels good today. She is Tamazight-speaking only. I was gathering information on her and was able to get a hold of her Pap smear from [facility] from 08/27/2024 patient has high-grade DANIKA with positive high risk HPV. She was not aware of this. She does need a colposcopy. 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 OB Initial Visit OB Flowsheet OB Flowsheet Initial Weight: Not Recorded Date <del>?</del> EGA Weight BP Alb Glu CTX Pres Fundal ht FHR Mov Dilation Station Effacement Hx Notes Visit Note 09/21/25 <del>?</del> 10w 4d 85.049 kg 117/82 11 140 Pt with HGSIL pap 09/14. Needs colpo. Pt aware. NEW OB. Labs ordered. NIPT offered. AMA Menstrual History Menstrual reliability: definite Flow: normal Menstrual regularity: regular Monthly: Yes Age at menarche: 14 On control pills at conception: No Date of positive home test: 12/28/24 Associated symptoms (LMP): Reports fatigue OB History : 7 Para: 5 Hx Total # of Abortions (Spontaneous & Elective): 1 # of Living Children: 5 Delivery History 1st : Child's name: SHAUN ARTEAGA date: 08/09/05 sex: male Gestational age at delivery (weeks): 39 Delivery type: vaginal Delivery complications: NONE History of depression before or after : No 2nd : Child's name: TANESHA ARTEAGA date: 02/14/07 sex: female Gestational age at delivery (weeks): 40 Delivery type: vaginal Delivery complications: NONE History of depression before or after : No 3rd : Child's name: ALMA ARTEAGA date: 02/29/12 sex: female Gestational age at delivery (weeks): 39 Delivery type: vaginal Delivery complications: NONE History of depression before or after : No 4th : Child's name: STACEY MARTELL date: 07/14/18 sex: male Gestational age at delivery (weeks): 40 Delivery type: vaginal Delivery complications: NONE History of depression before or after : No 5th : Child's name: LIZ MARTELL date: 08/18/09 sex: male Gestational age at delivery (weeks): 39 Delivery type: vaginal Delivery complications: NONE History of depression before or after : No Infection History & Risk Evaluation History of STDs: none Patient or partner has history of Genital Herpes: No Genetic Screening & History Genetic Screening/Teratology Counseling - Includes patient, baby's father, or anyone in either family with: 1. Patient's age 35 years or older as of estimated date of delivery: Yes 2. Thalassemia (Armenian, Slovak, Mediterranean, or Background); MCV less than 80: No 3. Neural Tube Defect (Meningomyelocele, Spina Bifida, or Anencephaly): No 4. Congenital Heart Defect: No 5. Down Syndrome: No 6. Osorio-Sachs (Ashkenazi Presybeterian, Cajun, Samoan [place]): No 7. Silvano Disease (Ashkenazi Presybeterian): No 8. Familial Dysautonomia (Ashkenazi Presybeterian): No 9. Sickle Cell Disease or Trait (): No 10. Hemophilia or other blood disorders: No 11. Muscular Dystrophy: No 12. Cystic Fibrosis: No 13. Pinell[place]'s Chorea: No 14. Mental Retardation/Autism: No 15. Other inherited genetic or chromosomal disorder: No 16. Maternal Metabolic Disorder (EG,TYPE 1 Diabetes, PKU): No 17. Patient or baby's father had a child with defects not listed above: No 18. Recurrent loss or a stillbirth: No 19. Medications (including supplements, vitamins, herbs or otc drugs)/illicit/recreational drugs/alcohol since last menstrual period: No 20. Any other: No Infection History 1. Live with someone with TB or exposed to TB: No 2. Rash or viral illness since last menstrual period: No 3. Hepatitis B,C: No Other (see comments) Source: [employer] Review of Systems Constitutional Constitutional: Reports fatigue Endocrine Endocrine: Reports fatigue Exam General Limitations: no limitations General Appearance: alert, in no apparent distress, comfortable, cooperative, healthy appearing and well groomed Neck Neck exam: Present normal inspection, full ROM and trachea midline Chest Chest inspection: Present normal inspection and symmetric chest wall rise Resp Respiratory exam: Present normal lung sounds bilaterally Card Cardiovascular exam: Present regular rate, normal rhythm and normal heart sounds Abdominal Abdominal exam: Present soft and normal bowel sounds Extremities Extremities exam: Present normal inspection and full ROM Psych Psychiatric exam: Present normal affect and normal mood Skin Skin exam: Present warm, dry, intact and normal color Office Procedures OBC Clinic LOC & Office Proc's Nursing/Assessment Patient Status: Established Patient OB Clinic Nursing Assessment: Medication Reconciliation, Update PMH in EMR and Vital Signs OB Clinic Coordination of Care: Complex Care and Chronic Disease 1-5, Education Complex Pt/Fam, Consent,records obtained, informed consent, Lab and Imaging orders, Results/Orders obtained and Staff clarify orders Special Needs: Heart tones Established Patient Charge Established Patient Point Assignment: 140 Established Patient Point Charge: EP Level 4 (120-155) Assessment & Plan Diagnosis / Problem List (1) : Status: Resolved Qualifiers: Weeks of gestation: 11 weeks Qualified Code(s): Z3A.11 - 11 weeks gestation of (2) HGSIL (high grade squamous intraepithelial lesion) on Pap smear of cervix: Status: Acute Assessment and Plan: Needs colposcopy scheduled (3) AMA (advanced maternal age) multigravida 35+: Status: Acute Qualifiers: Trimester: first trimester Qualified Code(s): O09.521 - Supervision of elderly multigravida, first trimester Assessment and Plan: Offered NIPT (4) Syphilis (acquired): Status: Acute Assessment and Plan: Need Titer. Treated with bicillin in past Additional Plan Follow Up: 4 Weeks
--- NOTE | 2025-10-16 12:08 | AMB.OBPP ---
Vital Signs 09/21/25 13:23 Height 1.63 m Height Method Stated Weight 85.049 kg Weight Measurement Method Standing Scale BMI 32.0 BP 117/82 Blood Pressure Source Automatic Cuff Blood Pressure Location Right Upper Arm Position Sitting Respiration 18 Pulse 93 Pulse Source Monitor Temp 97.5 F Temp Source Temporal Artery Scan Pulse Oximetry (%) 97 Oxygen Delivery Method Room Air Allergies/Home Meds Allergies & Medications Allergies No Known Allergies Allergy (Verified 09/21/25 13:24) Medication Reconciliation famotidine 20 mg tablet (Pepcid) 20 mg PO BID #30 tabs 08/29/25 [Rx Confirmed 09/21/25] metoclopramide HCl 5 mg tablet (Reglan) 5 mg PO Q12H #30 tabs 08/29/25 [Rx Confirmed 09/21/25] Intake Visit Data Collection Do You Feel Safe at Home: Yes Smoking Status Smoking Status: Never smoker 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: Past Medical History Past Medical History: No Hx Neurological Disorders, No Hx Hypothyroidism, No Hx Breast Cancer, No Hx Cardiac Disorders, No Hx Blood Disorders, No Hx Anemia, No Hx Gastrointestinal Disorders, No Hx Renal Disease, No Hx Diabetes Mellitus Type 1, No Hx Diabetes Mellitus Type 2, No Hx Tubal Ligation and No Hx Hysterectomy Questionnaires Covid-19 Vaccine Questionnaire Has patient been vacinated for Covid-19 Have you been vacinated for Covid-19: No Social History Living Situation History Marital Status: Lives With: Family Housing: House Tobacco History Smoking Status: Never smoker Second Hand Smoke Exposure: No Alcohol History Alcohol Intake: Never Domestic Abuse History Do You Feel Safe at Home: Yes Care NESHA Calculator Estimated Delivery Date Method Current WG Current Estimate 04/15/26 Ultrasound #1 14w 1d Other Estimates 04/28/26 LMP (Uncertain) 12w 2d Office Procedures OBC Clinic LOC & Office Proc's Nursing/Assessment Patient Status: Established Patient OB Clinic Nursing Assessment: Medication Reconciliation, Update PMH in EMR and Vital Signs OB Clinic Coordination of Care: Complex Care and Chronic Disease 1-5, Education Complex Pt/Fam, Consent,records obtained, informed consent, Lab and Imaging orders, Results/Orders obtained and Staff clarify orders Special Needs: Heart tones Established Patient Charge Established Patient Point Assignment: 140 Established Patient Point Charge: EP Level 4 (120-155)
== END 2025-09-21 13:58 | disposition home or self-care (01) ==
LOC: HODSOBC 13:00
PROVIDERS: Supervising Provider Obstetrics & Gynecology; Visit Provider Obstetrics & Gynecology
DX: O09.521 Supervision of elderly multigravida, first trimester (principal); O09.41 Supervision of pregnancy with grand multiparity, first trimester; O09.891 Supervision of other high risk pregnancies, first trimester; O98.111 Syphilis complicating pregnancy, first trimester; O99.891 Other specified diseases and conditions complicating pregnancy; R87.613 High grade squamous intraepithelial lesion on cytologic smear of cervix (HGSIL); Z3A.10 10 weeks gestation of pregnancy
CPT/HCPCS: 99214; G0463

== ENCOUNTER 2025-10-20 14:51 | Outpatient (AMB) | payer MEDICAID, SELFPAY ==
--- NOTE | 2025-10-20 15:07 | OBCLNT_ITS ---
Vital Signs 10/20/25 15:08 Height 1.63 m Height Method Stated Weight 87.146 kg Weight Measurement Method Standing Scale BMI 32.8 BP 127/86 H Blood Pressure Source Automatic Cuff Blood Pressure Location Left Upper Arm Position Left Lateral Respiration 20 Pulse 109 H Pulse Source Monitor Temp 97.4 F Temp Source Oral Pulse Oximetry (%) 96 Oxygen Delivery Method Room Air Allergies/Home Meds Allergies & Medications Allergies No Known Allergies Allergy (Verified 10/20/25 15:09) Medication Reconciliation famotidine 20 mg tablet (Pepcid) 20 mg PO BID #30 tabs 08/29/25 [Rx Confirmed 10/20/25] metoclopramide HCl 5 mg tablet (Reglan) 5 mg PO Q12H #30 tabs 08/29/25 [Rx Confirmed 10/20/25] Immunizations Immunizations Flu Vaccine in the Last 12 Months: No Flu Vaccine Exclusion Criteria: Refused by Patient Care OB Visit Log OB Flowsheet Initial Weight: Not Recorded Date -?-?-?-?-?-?-?-?-?-?-?-?- EGA Weight BP Alb Glu CTX Pres Fundal ht FHR Mov Dilation Station Effacement Hx Notes Visit Note 09/21/25 -?-?-?-?-?-?-?-?-?-?-?-?- 10w 4d 85.049 kg 117/82 11 140 Pt with HGSIL pap 09/14. Needs colpo. Pt aware. NEW OB. Labs ordered. NIPT offered. AMA 10/20/25 -?-?-?-?-?-?-?-?-?-?-?-?- 14w 5d 87.146 kg 127/86 15 149 NESHA Calculator Estimated Delivery Date Method Current WG Current Estimate 04/15/26 Ultrasound #1 14w 5d Other Estimates 04/28/26 LMP (Uncertain) 12w 6d Notes Visit Date: 10/20/25 Last Updated by: Khushi Linn MD / States partner got treated and she got treated this year for syphilis / will monitor titres of RPR Labs 09/22/2025 Hep B/HIV Hep C negative RPR reactive 1:8 and Treponema Pallidum Ab positive / Needs treatment for syphilis but [facility] has no availability of bicillin Rubella immune / GC and CT negative / o positive / TSH and Hb A1c are normal Office Procedures OBC Clinic LOC & Office Proc's Nursing/Assessment Patient Status: Established Patient OB Clinic Nursing Assessment: Medication Reconciliation, Update PMH in EMR and Vital Signs OB Clinic Coordination of Care: Complex Care and Chronic Disease 1-5, C onsent,records obtained, informed consent, Education Simp Pt/Fam, 1 Ins Authorization, Lab and Imaging orders, Results/Orders obtained and Staff clarify orders Special Needs: Heart tones Established Patient Charge Established Patient Point Assignment: 150 Established Patient Point Charge: EP Level 4 (120-155) Assessment & Plan Diagnosis / Problem List (1) Syphilis (acquired): Status: Acute (2) AMA (advanced maternal age) multigravida 35+: Status: Acute Qualifiers: Trimester: first trimester Qualified Code(s): O09.521 - Supervision of elderly multigravida, first trimester (3) : Status: Resolved Qualifiers: Weeks of gestation: 11 weeks Qualified Code(s): Z3A.11 - 11 weeks station of Assessment and Plan: States partner got treated and she got treated this year for syphilis / will monitor titres of RPR / order [facility] Labs 09/22/2025 Hep B/HIV Hep C negative RPR reactive 1:8 and Treponema Pallidum Ab positive / Needs treatment for syphilis but [facility] has no availability of bicillin Rubella immune / GC and CT negative / o positive / TSH and Hb A1c are normal (4) HGSIL (high grade squamous intraepithelial lesion) on Pap smear of cervix: Status: Acute Plan: schedule for colposcopy in 2 weeks Additional Plan Follow Up: 4 Weeks
[2025-10-20 15:08] VITALS: BP 127/86; PULSE 109; RESP 20; TEMP 36.3; O2SAT 96; BMI 32.8
== END 2025-10-20 16:23 | disposition home or self-care (01) ==
LOC: HODSOBC 14:51
PROVIDERS: Supervising Provider Obstetrics & Gynecology; Visit Provider Obstetrics & Gynecology
DX: O09.892 Supervision of other high risk pregnancies, second trimester (principal); O98.112 Syphilis complicating pregnancy, second trimester; A53.9 Syphilis, unspecified; O09.522 Supervision of elderly multigravida, second trimester; Z28.21 Immunization not carried out because of patient refusal; O28.2 Abnormal cytological finding on antenatal screening of mother; Z3A.14 14 weeks gestation of pregnancy
CPT/HCPCS: 99214; G0463